=== PATIENT | female | born 1995 | race Caucasian/White ===

== ENCOUNTER 2016-06-03 17:31 | Emergency (ER) | payer OTHER ==
--- NOTE | 2016-06-03 18:00 | ER Document Report ---
ED Medical Screen (RME) - General Stated Complaint: BACK PAIN Notes: 21 yo female c/o low back pain since this morning. no trauma. no fever. no urinary symptoms. no radiculopathy no paresthesia no bowel/bladder change. TRAVEL OUTSIDE OF THE [place] IN LAST 30 DAYS: No - Related Data Allergies/Adverse Reactions: No Known Allergies Allergy (Unverified 10/08/14 08:04) Past Medical History Pulmonary Medical History: Reports: Hx Bronchitis Psychiatric Medical History: Reports: Hx Attention Deficit Hyperactivity Disorder - Immunizations Immunizations up to date: Yes Hx Diphtheria, Pertussis, Tetanus Vaccination: Yes - 08/2014 Physical Exam - Vital signs Vitals: Temp Pulse Resp BP Pulse Ox 98.8 F 90 16 105/68 98 06/03/16 17:36 06/03/16 17:36 06/03/16 17:36 06/03/16 17:36 06/03/16 17:36 Course - Vital Signs Vital signs: Temp Pulse Resp BP Pulse Ox 98.8 F 90 16 105/68 98 06/03/16 17:36 06/03/16 17:36 06/03/16 17:36 06/03/16 17:36 06/03/16 17:36
[2016-06-03 20:28] LABS: APPEARANCE,URINE CLOUDY; BILIRUBIN,URINE NEGATIVE (NEGATIVE); GLUCOSE, URINE NEGATIVE (NEGATIVE); KETONES,URINE NEGATIVE (NEGATIVE); LEUKOCYTE ESTERASE,URINE LARGE (NEGATIVE); NITRITE,URINE NEGATIVE (NEGATIVE); PROTEIN,URINE NEGATIVE (NEGATIVE); URINE SPECIFIC GRAVITY 1.028; UROBILINOGEN,URINE NEGATIVE mg/dL (<2.0)
[2016-06-03] MEDS ORDERED: CEPHALEXIN 500 MG CAPSULE PO ONE (20:48)
[2016-06-03] MEDS ORDERED: HYDROCODONE/ACETAMINOPHEN 5-325 MG TABLET PO ONE (20:48)
--- NOTE | 2016-06-03 20:51 | ER Document Report ---
HPI - HPI Patient complains to provider of: flank pain Pain Level: 5 Context: Patient is a 21-year-old female that comes emergency department for chief complaint of pain in her mid to lower back, worse on the right but starting also to become more tender on the left. She denies any abdominal pain, dysuria , nausea or vomiting, fever or chills. She denies any injury to the area. Patient denies any daily medications. LMP at the beginning of the month. - REPRODUCTIVE LMP: [id number] Reproductive: DENIES: : - DERM Skin Color: Normal Past Medical History - General Information source: Patient - Social History Smoking Status: Current Every Day Smoker Chew tobacco use (# tins/day): No Frequency of alcohol use: Occasional Drug Abuse: None Lives with: Spouse/Significant other Family History: Arthritis, CAD, Hyperlipidemia, Hypertension Patient has suicidal ideation: No Patient has homicidal ideation: No Pulmonary Medical History: Reports: Hx Bronchitis Renal/ Medical History: Denies: Hx Peritoneal Dialysis Psychiatric Medical History: Reports: Hx Attention Deficit Hyperactivity Disorder Surgical Hx: Negative - Immunizations Immunizations up to date: Yes Hx Diphtheria, Pertussis, Tetanus Vaccination: Yes - 08/2014 [facility] Provider Document - CONSTITUTIONAL General Appearance: WD/WN, No Apparent Distress - INFECTION CONTROL TRAVEL OUTSIDE OF THE [place] IN LAST 30 DAYS: No - HEENT HEENT: Atraumatic, Normocephalic - NECK Neck: Normal Inspection - RESPIRATORY Respiratory: Breath Sounds Normal, No Respiratory Distress O2 Sat by Pulse Oximetry: 99 - CARDIOVASCULAR Cardiovascular: Regular Rate, Regular Rhythm - GI/ABDOMEN Gastrointestinal: Abdomen Soft, Abdomen Non-Tender - BACK Notes: There is mild tenderness over the mid to lower lumbar areas of the right side of the back, there is some paraspinal muscle tenderness in this area as well, normal midline exam, no saddle anesthesia, normal upper and lower extremity range of motion and strength, normal distal neurovascular exam. - MUSCULOSKELETAL/EXTREMETIES Musculoskeletal/Extremeties: MAEW, FROM, Non-Tender - NEURO Level of Consciousness: Awake, Alert, Appropriate - DERM Integumentary: Warm, Dry, No Rash Course - Re-evaluation Re-evalutation: Back exam is suggestive of a muscular source of patient's discomfort, patient is well-appearing, patient is in no distress. Urinalysis shows negative hCG, large leukocyte esterase with white blood cells, there is also a fairly large amount of squamous epithelials. This was discussed with patient, patient will be started on short-term antibiotic, muscle relaxer, discussed follow-up and return precautions. Patient states understanding and agreement. - Vital Signs Vital signs: Temp Pulse Resp BP Pulse Ox 98.3 F 82 15 110/68 99 06/03/16 19:57 06/03/16 19:57 06/03/16 19:57 06/03/16 19:57 06/03/16 19:57 - Laboratory Laboratory results interpreted by me: 06/03/16 20:00 Ur Leukocyte Esterase LARGE H Discharge - Discharge Clinical Impression: Flank pain Condition: Stable Disposition: HOME, SELF-CARE Additional Instructions: Urinalysis indicates infection, test is negative. Examination also suggests a muscular nature of your pain, take both the Keflex antibiotic and the Flexeril muscle relaxer, apply heat to the area, avoid lifting until symptoms resolve if possible. Follow-up with primary care. Return to emergency department for any concerning or worsening symptoms including fever, vomiting, etc. Prescriptions: Cephalexin Monohydrate [Keflex 500 mg Capsule] 500 mg PO BID #10 capsule Cyclobenzaprine HCl [Flexeril 5 mg Tablet] 5 mg PO TID #15 tablet
[2016-06-04 00:11] VITALS: BP 112/69
== END 2016-06-03 20:55 | disposition home or self-care (01) ==
LOC: ER 17:31
DX: R10.9 Unspecified abdominal pain (principal); M54.5 Low back pain; F17.200 Nicotine dependence, unspecified, uncomplicated
CPT/HCPCS: 81001; 81025; 99284

== ENCOUNTER 2016-09-29 00:12 | Emergency (ER) | payer SELFPAY ==
[2016-09-29 01:07] VITALS: BP 133/86
[2016-09-29] MEDS ORDERED: LIDOCAINE 1% INJ-PF (10 MG/ML) 30 ML SDV INJ ONE (03:33)
--- NOTE | 2016-09-29 03:35 | ER Document Report ---
ED General - General Chief Complaint: Cough, abscess Stated Complaint: COUGH Time Seen by Provider: 09/29/16 03:18 Notes: Patient is a 21-year-old female presents with complaint of coughing. She has been coughing for over a week. She does not smoke. No sick contacts that she is aware of. Some congestion. No fevers. Patient says she is also been vomiting. She vomits sometimes when she coughs and sometimes when she eats.Abdominal pain with it. She is wonders if she could be . Her menstrual periods have been regular. Last period was about a month ago. Complains of an abscess in the right axilla. She has never had them in this location before. TRAVEL OUTSIDE OF THE [place] IN LAST 30 DAYS: No - Related Data Allergies/Adverse Reactions: No Known Allergies Allergy (Verified 06/03/16 17:58) Past Medical History - Social History Smoking Status: Never Smoker Frequency of alcohol use: None Drug Abuse: None Family History: Arthritis, CAD, Hyperlipidemia, Hypertension Pulmonary Medical History: Reports: Hx Bronchitis Renal/ Medical History: Denies: Hx Peritoneal Dialysis Psychiatric Medical History: Reports: Hx Attention Deficit Hyperactivity Disorder - Immunizations Immunizations up to date: Yes Hx Diphtheria, Pertussis, Tetanus Vaccination: Yes - 08/2014 Review of Systems - Review of Systems Notes: My Normal Review Basic REVIEW OF SYSTEMS: CONSTITUTIONAL : Denies fever, chills, or sweats. Denies recent illness. EENT: some sinus congestion. CARDIOVASCULAR: Denies chest pain. RESPIRATORY: cough GASTROINTESTINAL: Denies abdominal pain. vomiting. GENITOURINARY: Denies difficulty urinating, painful urination, burning, frequency, or blood in urine. FEMALE GENITOURINARY: Denies vaginal bleeding, abnormal or irregular periods. LMP: MUSCULOSKELETAL: Denies neck or back pain or joint pain or swelling. SKIN: Right axilla NEUROLOGICAL: Denies altered mental status or loss of consciousness. Denies headache. Denies weakness or paralysis or loss of use of either side. Denies problems with gait or speech. Denies sensory or motor loss. ALL OTHER SYSTEMS REVIEWED AND NEGATIVE. Physical Exam - Vital signs Vitals: Temp Pulse Resp BP Pulse Ox 98.5 F 117 H 16 133/86 H 99 09/29/16 01:01 09/29/16 01:01 09/29/16 01:01 09/29/16 01:01 09/29/16 01:01 - Notes Notes: General Appearance: Well nourished, alert, cooperative, no acute distress, no obvious discomfort. Dry cough during exam. Vitals: reviewed, See vital signs table. Head: no swelling or tenderness to the head Eyes: PERRL, EOMI, Conjuctiva clear Mouth: No decreasd moisture Throat: No tonsillar inflammation, No airway obstruction, No lymphadenopathy Neck: Supple, no neck tenderness, No thyromegaly Lungs: No wheezing, No rales, No rhonci, No accessory muscle use, good air exchange bilaterally. Heart: Normal rate, Regular rythm, No murmur, no rub Abdomen: Normal BS, soft, No rigidity, No abdominal tenderness, No guarding, no rebound, no abdominal masses, Extremities: strength 5/5 in all extremities, good pulses in all extremities, no swelling or tenderness in the extremities, no edema. Skin: warm, dry, appropriate color, no rash Neuro: speech clear, oriented x 3, normal affect, responds appropriately to questions. Course - Vital Signs Vital signs: Temp Pulse Resp BP Pulse Ox 98.5 F 117 H 16 133/86 H 99 09/29/16 01:01 09/29/16 01:01 09/29/16 01:01 09/29/16 01:01 09/29/16 01:01 - Laboratory Result Diagrams: 09/29/16 03:20 09/29/16 03:20 Laboratory results interpreted by me: 09/29/16 03:20 WBC 12.6 H MCV 79 L MCH 25.6 L Absolute Neutrophils 8.4 H - Transfer of Care Notes: 09/29/16 05:16 The abscess was incised and drained. She will be placed on clindamycin. She will be placed on prednisone for her cough. She has what appears to be a bronchitis. Her nausea is improved with Zofran. She has no abdominal pain palpation of her abdomen. She is not . She has had no dysuria. No vaginal symptoms. I feel the patient safe to be discharged home. I encouraged her to return to ER if she has worsening of her symptoms, fevers, or feels unwell. Patient agrees with plan will be discharged home. Dictation of this chart was performed using voice recognition software; therefore, there may be some unintended grammatical errors. Procedures - Incision and Drainage right axila Type: Simple Anesthetic type: 1% Lidocaine Blade size: 11 I&D procedure: Betadine prep applied Incision Method: Incision made by scalpel Amount/type of drainage: 3mls of purulent drainage Discharge - Discharge Clinical Impression: Cough, Axillary abscess Vomiting Qualifiers: Vomiting type: unspecified Vomiting Intractability: unspecified Nausea presence : with nausea Qualified Code(s): R11.2 - Nausea with vomiting, unspecified Condition: Good Additional Instructions: BRONCHITIS: You have acute bronchitis. This disease is an infection or inflammation of the air passageways in your lungs. Symptoms usually include cough, low grade fever, shortness of breath, and wheezing. The cough usually persists for a couple of weeks. Most cases of bronchitis get better without antibiotics. We prescribe antibiotics when we believe bacteria are damaging your airways, or if there's high risk the bronchitis will worsen into pneumonia. Increase your fluid intake. A cool mist humidifier may make your lungs more comfortable. An expectorant (cough medicine that loosens phlegm) can help. If you smoke, STOP!!! Recovery from bronchitis can be somewhat slow, but you should see improvement within a day or two. Repeated episodes of bronchitis may result in lung damage -- for example, chronic bronchitis, recurrent pneumonias, or emphysema. Call the doctor if you develop increasing fever, shortness of breath, chest pain, bloody sputum, or otherwise worsen. If you have not improved at all after several days, contact the physician. STEROID MEDICATION: You have been given an injection of or oral medicine of the cortisone/ steroid class. This medication is used to control inflammation or allergy. Ibrahima t is usually only given for a short period of time, until the acute process subsides. There are usually no side effects from short-term use of cortisone-like medications. Some persons feel an increased sense of well-being and are not sleepy at bedtime. Long-term use of cortisone medications is best avoided, unless required for a severe condition. If your condition does not remit, or relapses after the course of corticosteroid medication, you should consult your physician. FOLLOW-UP CARE: If you have been referred to a physician for follow-up care, call the physician s office for an appointment as you were instructed or within the next two days. If you experience worsening or a significant change in your symptoms, notify the physician immediately or return to the Emergency Department at any time for re-evaluation. ABSCESS: You have an abscess (boil). This a pus-forming infection, usually due to staph. Some boils may be left to drain on their own, but most require lancing. From the time the tender lump first appears, it may be three or four days before the abscess is ready to rachel. Local heat and rest help at this stage of treatment. An antibiotic may prevent spread of the infection. Once the abscess is opened, packing may be placed into it. This is done so pus is not sealed inside by premature closure of the cavity. The packing will be removed at your follow-up visit or you may be advised to remove it yourself at home. Sometimes this packing must be replaced a few times during healing. The wound will heal with surprisingly little scar. Depending on the size and location of an abscess, healing can take one to four weeks. You may shower and wash the area around the incision site two or three times a day. Antibiotics may be prescribed, but are usually not necessary after an abscess has been drained. If you develop fever, chills, worsening pain, or increasing swelling in the area, call the doctor or return immediately. POST INCISION AND DRAINAGE: You have had an incision made to allow drainage of an abscess. The incision must remain open so that pus and debris can drain from the wound. If the abscess cavity is large, packing is placed. This keeps the tissues from collapsing and trapping pus inside, while the body shrinks the cavity. The packing may need to be replaced every day or two. The physician will instruct you on the packing. Keep a bulky dressing over the area. Replace it if it becomes saturated with blood or pus. Do not disturb the packing (if present). You may shower and cleanse the area with gentle soap and warm water two or three times a day. Local warmth may be soothing, and may promote faster healing. Return if you develop high fever or chills, or if you note spreading redness, increasing swelling, or increasing tenderness. ORAL NARCOTIC MEDICATION: You have been given a prescription for pain control. This medication is a narcotic. It's best taken with food, as nausea can result if taken on an empty stomach. Don't operate machinery or drive within six hours of taking this medication. Do not combine this medicine with alcohol, or with any medication which can cause sedation (such as cold tablets or sleeping pills) unless you get permission from the physician. Narcotics tend to cause constipation. If possible, drink plenty of fluids and eat a diet high in fiber and fruits. FOLLOW-UP CARE: Most simple abscesses will not require a follow up visit. If you had packing placed in the abscess, remove it as instructed by the physician. If you have been referred to a physician for follow-up care, call the physicians office for an appointment as you were instructed or within the next two days. If you experience worsening or a significant change in your symptoms, return to the Emergency Department at any time for re-evaluation. Please return to the ER if you have difficulty breathing, fevers, increased swelling in your armpit, or worsening recurrent vomiting. Follow up with a doctor in 3 days for reevaluation Prescriptions: Clindamycin HCl 300 mg PO ASDIR #56 capsule Ondansetron [Zofran Odt 4 mg Tablet] 1 tab PO Q4H PRN #15 tab.rapdis PRN Reason: For Nausea/Vomiting Prednisone [Deltasone 20 mg Tablet] 3 tab PO DAILY 4 Days
[2016-09-29 03:41] LABS: ABSOLUTE BASOPHILS # (AUTO) 0.1 10^3/uL (0.0-0.2); ABSOLUTE EOSINOPHILS # (AUTO) 0.1 10^3/uL (0.0-0.6); ABSOLUTE LYMPHOCYTES (AUTO) 2.7 10^3/uL (0.5-4.7); ABSOLUTE MONOCYTES (AUTO) 1.3 10^3/uL (0.1-1.4); ABSOLUTE NEUT (AUTO) 8.4 10^3/uL (1.7-8.2); BASOPHILS % (AUTO) 0.4 % (0-2); HEMATOCRIT 37.5 % (36.0-47.0); HEMOGLOBIN 12.1 g/dL (12.0-15.5); HGB HCT DIFFERENCE -1.2; LYMPHOCYTES % (AUTO) 21.6 % (13-45); MEAN CORPUSCULAR HEMOGLOBIN 25.6 pg (27.0-33.4); MEAN CORPUSCULAR HGB CONC 32.3 g/dL (32.0-36.0); MEAN CORPUSCULAR VOLUME 79 fl (80-97); MONOCYTES % (AUTO) 10.3 % (3-13); RED BLOOD COUNT 4.73 10^6/uL (3.72-5.28); RED CELL DISTRIBUTION WIDTH 13.6 % (11.5-14.0); SEGMENTED NEUTROPHILS % (AUTO) 66.7 % (42-78); WHITE BLOOD COUNT 12.6 10^3/uL (4.0-10.5)
[2016-09-29 03:55] LABS: ALANINE AMINOTRANSFERASE 31 U/L (9-52); ALBUMIN 4.5 g/dL (3.5-5.0); ALKALINE PHOSPHATASE 91 U/L (38-126); ANION GAP 15 (5-19); ASPARTATE AMINO TRANSFERASE 23 U/L (14-36); BILIRUBIN,DIRECT 0.3 mg/dL (0.0-0.4); BILIRUBIN,TOTAL 0.5 mg/dL (0.2-1.3); BLOOD UREA NITROGEN 8 mg/dL (7-20); CALCIUM 9.6 mg/dL (8.4-10.2); CARBON DIOXIDE 23 mmol/L (22-30); CHLORIDE 104 mmol/L (98-107); CREATININE RESULT 0.76 mg/dL (0.52-1.25); GLUCOSE 89 mg/dL (75-110); LIPASE 60.4 U/L (23-300); POTASSIUM 4.3 mmol/L (3.6-5.0); SODIUM 141.6 mmol/L (137-145)
--- NOTE | 2016-09-29 04:44 | RADIOLOGY REPORT (SQ) ---
EXAM DESCRIPTION: CHEST PA/LAT COMPLETED DATE/TIME: 09/29/2016 4:35 am REASON FOR STUDY: cough COMPARISON: 8.5.16 EXAM PARAMETERS: NUMBER OF VIEWS: two views TECHNIQUE: Digital Frontal and Lateral radiographic views of the chest acquired. RADIATION DOSE: NA LIMITATIONS: none FINDINGS: LUNGS AND PLEURA: No opacities, masses or pneumothorax. No pleural effusion. MEDIASTINUM AND HILAR STRUCTURES: No masses or contour abnormalities. HEART AND VASCULAR STRUCTURES: Heart normal size. No evidence for failure. BONES: No acute findings. HARDWARE: None in the chest. OTHER: No other significant finding. IMPRESSION: NO SIGNIFICANT RADIOGRAPHIC FINDING IN THE CHEST. TECHNICAL DOCUMENTATION: JOB ID: [id number] [employer]- All Rights Reserved
[2016-09-29] MEDS ORDERED: ONDANSETRON 4 MG TAB.RAPDIS PO ONE (04:50)
[2016-09-29] MEDS ORDERED: PREDNISONE 20 MG TABLET PO ONE (05:07)
[2016-09-29] MEDS ORDERED: HYDROCODONE/ACETAMINOPHEN 5-325 MG 6 TAB/DSPK PO PRN (05:07)
[2016-09-29] MEDS ORDERED: CLINDAMYCIN HCL 150 MG CAPSULE PO ONE (05:07)
== END 2016-09-29 06:11 | disposition home or self-care (01) ==
LOC: ER 00:12
PROC: 0H9BXZZ Drainage of Right Upper Arm Skin, External Approach (ICD-10-PCS; principal; 2016-09-29)
DX: L02.411 Cutaneous abscess of right axilla (principal); R05 Cough; R11.2 Nausea with vomiting, unspecified
CPT/HCPCS: 99283; 36415; 83690; 84703; 85025; 80053; 71020; 10060; S0119; J7512

== ENCOUNTER 2016-11-24 | Emergency (ER) | payer SELFPAY ==
[2016-11-24 00:12] VITALS: BP 127/74
[2016-11-24] MEDS ORDERED: IBUPROFEN 600 MG TABLET PO ONE (00:43)
[2016-11-24] MEDS ORDERED: SULFAMETHOXAZOLE/TRIMETHOPRIM 800-160 MG TABLET PO ONE (00:43)
--- NOTE | 2016-11-24 00:44 | ER Document Report ---
ED General - General Chief Complaint: Abscess Stated Complaint: POSSIBLE ABSCESS Time Seen by Provider: 11/24/16 00:23 Notes: Patient is a 21-year-old female who presents with 1 week of an abscess to her left buttock. Describes it as a severe, constant, throbbing pain. Touching area worsens the pain. Nothing improves the pain. She has had multiple abscesses similar to this in the past. She has not seen her primary care doctor regarding today's concerns. She denies any fever or constitutional symptoms. TRAVEL OUTSIDE OF THE [place] IN LAST 30 DAYS: No - Related Data Allergies/Adverse Reactions: No Known Allergies Allergy (Verified 06/03/16 17:58) Past Medical History - General Information source: Patient - Social History Smoking Status: Never Smoker Frequency of alcohol use: None Drug Abuse: None Family History: Arthritis, CAD, Hyperlipidemia, Hypertension Patient has suicidal ideation: No Patient has homicidal ideation: No Pulmonary Medical History: Reports: Hx Bronchitis Renal/ Medical History: Denies: Hx Peritoneal Dialysis Psychiatric Medical History: Reports: Hx Attention Deficit Hyperactivity Disorder - Immunizations Immunizations up to date: Yes Hx Diphtheria, Pertussis, Tetanus Vaccination: Yes - 08/2014 Review of Systems - Review of Systems Notes: Constitutional: Negative for fever. HENT: Negative for sore throat. Eyes: Negative for visual changes. Cardiovascular: Negative for chest pain. Respiratory: Negative for shortness of breath. Gastrointestinal: Negative for abdominal pain, vomiting or diarrhea. Genitourinary: Negative for dysuria. Musculoskeletal: Negative for back pain. Skin: Positive for right buttock abscess Neurological: Negative for headaches, weakness or numbness. 10 point ROS negative except as marked above and in HPI. Physical Exam - Vital signs Vitals: Temp Pulse Resp BP Pulse Ox 98.5 F 90 18 127/74 H 98 11/24/16 00:10 11/24/16 00:10 11/24/16 00:10 11/24/16 00:10 11/24/16 00:10 Notes: PHYSICAL EXAMINATION: GENERAL: Well-appearing, well-nourished and in no acute distress. HEAD: Atraumatic, normocephalic. EYES: sclera anicteric, conjunctiva are normal. ENT: Moist mucous membranes. NECK: Normal range of motion LUNGS: Normal work of breathing HEART: 2+ radial pulses bilaterally EXTREMITIES: no pitting or edema. No cyanosis. NEUROLOGICAL: No focal neurological deficits. Moves all extremities spontaneously and on command. PSYCH: Normal mood, normal affect. SKIN: Warm, Dry, normal turgor, left buttock 0.5 x 0.5 abscess Course - Re-evaluation Re-evalutation: 11/24/16 00:42 Patient presents with a right buttock abscess which was incised and drained without difficulty the bedside. Approximately 3 cc of purulent material was expressed. There is a mild surrounding area of cellulitis. She was started on TMP-SMX 2 tabs twice daily for 5 days. Ibuprofen for pain. At this time will discharge with return precautions and follow-up recommendations. Verbal discharge instructions given a the bedside and opportunity for questions given. Medication warnings reviewed. Patient is in agreement with this plan and has verbalized understanding of return precautions and the need for primary care follow-up in the next 24-72 hours. - Vital Signs Vital signs: Temp Pulse Resp BP Pulse Ox 98.5 F 90 18 127/74 H 98 11/24/16 00:10 11/24/16 00:10 11/24/16 00:10 11/24/16 00:10 11/24/16 00:10 Procedures - Incision and Drainage Right Buttock Type: Simple Anesthetic type: 1% Lidocaine mL's of anesthetic: 4 Blade size: 11 I&D procedure: Betadine prep applied Incision Method: Incision made by scalpel Amount/type of drainage: 3 cc purulent material Discharge - Discharge Clinical Impression: Abscess of right buttock Condition: Good Disposition: HOME, SELF-CARE Additional Instructions: You were seen for an abscess that required drainage. Please clean this area with soap and water twice daily and apply a topical antibiotic. Dress the area after each cleaning. Please return if you develop fever, vomiting, the pain at the site worsens, you notice spreading redness from the area, or you have any other symptoms that are concerning to you. Prescriptions: Sulfamethoxazole/Trimethoprim [Bactrim Ds Tablet] 2 tab PO BID #20 tablet
== END 2016-11-24 01:00 | disposition home or self-care (01) ==
LOC: ER
PROC: 0H98XZZ Drainage of Buttock Skin, External Approach (ICD-10-PCS; principal; 2016-11-24)
DX: L02.31 Cutaneous abscess of buttock (principal)
CPT/HCPCS: 99283

== ENCOUNTER 2016-12-13 20:48 | Emergency (ER) | payer SELFPAY ==
[2016-12-13 21:08] VITALS: BP 132/77
--- NOTE | 2016-12-13 21:16 | ER Document Report ---
ED Skin Rash/Insect Bite/Abscs - General Chief Complaint: Leg Swelling Stated Complaint: BUG BITE Time Seen by Provider: 12/13/16 21:05 Mode of Arrival: Ambulatory Information source: Patient TRAVEL OUTSIDE OF THE [place] IN LAST 30 DAYS: No - HPI Patient complains to provider of: Tender/swollen area Onset: Other - A few days ago Onset/Duration: Gradual Quality of pain: Achy Severity: Moderate Pain Level: 3 Skin Character: Abscess Skin Temperature: Warm Quality of rash: Painful Notes: Patient arrives complaining of an abscess to the right inner leg. She states been there for the last few days but got worse today. She now has some slight redness streaking up towards the knee. No fevers. No nausea, vomiting, diarrhea. 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 She has had abscesses in the past. She denies any fever. She denies any nausea, vomiting, diarrhea. She denies any other complaints at this time. - Related Data Allergies/Adverse Reactions: No Known Allergies Allergy (Verified 06/03/16 17:58) Past Medical History - Social History Smoking Status: Unknown if Ever Smoked Family History: Arthritis, CAD, Hyperlipidemia, Hypertension Patient has suicidal ideation: No Patient has homicidal ideation: No Pulmonary Medical History: Reports: Hx Bronchitis Renal/ Medical History: Denies: Hx Peritoneal Dialysis Psychiatric Medical History: Reports: Hx Attention Deficit Hyperactivity Disorder - Immunizations Immunizations up to date: Yes Hx Diphtheria, Pertussis, Tetanus Vaccination: Yes - 08/2014 Review of Systems - Review of Systems -: Yes All other systems reviewed and negative Physical Exam - Vital signs Vitals: Temp Pulse Resp BP Pulse Ox 98.2 F 100 16 132/77 H 99 12/13/16 21:05 12/13/16 21:05 12/13/16 21:05 12/13/16 21:05 12/13/16 21:05 - Notes Notes: GENERAL: alert, cooperative, nontoxic, no distress. HEAD: normocephalic, atraumatic EYES: conjunctiva pink without discharge, no external redness or swelling. EARS: no external swelling, no external redness NOSE: atraumatic, no external swelling MOUTH/THROAT: mucous membranes moist and pink NECK: soft, supple, full range of motion, no meningismus. CHEST: no distress, lungs clear and equal throughout. No wheezing, rales, rhonchi. CARDIAC: regular rate and rhythm, no murmur, normal capillary refill, normal pulses. BACK: full range of motion, no CVA tenderness. EXTREMITIES: full range of motion of all extremities. No redness, no swelling. NEURO: alert and oriented 3, no focal deficits, full range of motion of all extremities. PYSCH: appropriate mood, affect. Patient is cooperative. SKIN: pink, warm, dry, no rash. Patient is noted to have a small abscess that is open and draining to the right inner calf. There is some mild surrounding erythema around this. There is no fluctuance noted. She has 1 small area of red streaking up towards the knee. No streaking to the thigh. Course - Re-evaluation Re-evalutation: 12/13/16 21:13 The patient is nontoxic appearing with stable vitals. She has an abscess to the right inner calf that is already open and draining. There is no further drainable collection noted. She has some mild surrounding erythema and a small area of red streaking up towards the knee. She is afebrile. She denies a history of diabetes. End of her exam is unremarkable. She has a history of abscess in the past. This point the abscess does not appear to need further opening as there is no further fluctuance noted. Patient will be placed on Bactrim and Keflex, Voltaren, tramadol, apply warm compresses to the sore area. Follow-up if not improving in the next 2 days, sooner for increased pain, fever, increased redness or any further concerns. 12/13/16 21:15 The patient is noted to have elevated blood pressure during today's emergency department visit. The patient was informed of this finding. The patient was instructed that this may be related to pre-hypertension and requires further evaluation with a primary care provider. The patient has no hypertensive symptoms at this time. - Vital Signs Vital signs: Temp Pulse Resp BP Pulse Ox 98.2 F 100 16 132/77 H 99 12/13/16 21:05 12/13/16 21:05 12/13/16 21:05 12/13/16 21:05 12/13/16 21:05 Discharge - Discharge Clinical Impression: Cellulitis and abscess of right leg Condition: Stable Disposition: HOME, SELF-CARE Instructions: Abscess ([facility]), Cephalexin ([facility]), Trimethoprim-Sulfa ([facility]) Additional Instructions: Take medications as prescribed. Apply warm compresses to sore area. Follow-up if not better in 2 days, sooner for increased pain, fever, increased redness, or any further concerns. Your blood pressure was elevated during today's visit. Have this rechecked with your doctor. Prescriptions: Cephalexin Monohydrate [Keflex 500 mg Capsule] 500 mg PO QID #40 capsule Naproxen 500 mg PO BID #20 tablet Sulfamethoxazole/Trimethoprim [Bactrim Ds Tablet] 1 each PO BID #20 tablet Tramadol HCl [Ultram] 50 mg PO TID PRN #10 tablet PRN Reason: Forms: Elevated Blood Pressure Referrals: [facility] [Provider Group] - Follow up as needed
[2016-12-13] MEDS ORDERED: SULFAMETHOXAZOLE/TRIMETHOPRIM 800-160 MG TABLET ONE (21:22)
[2016-12-13] MEDS ORDERED: CEPHALEXIN 500 MG CAPSULE ONE (21:23)
== END 2016-12-13 21:25 | disposition home or self-care (01) ==
LOC: ER 20:48
DX: L02.415 Cutaneous abscess of right lower limb (principal)
CPT/HCPCS: 99282

== ENCOUNTER 2017-01-10 16:05 | Emergency (ER) | payer SELFPAY ==
--- NOTE | 2017-01-10 17:16 | ER Document Report ---
ED General - General Chief Complaint: Lower Abdominal Pain Stated Complaint: lower abdominal pain RLQ Time Seen by Provider: 01/10/17 16:18 Mode of Arrival: Ambulatory Information source: Patient TRAVEL OUTSIDE OF THE [place] IN LAST 30 DAYS: No - HPI Notes: Patient is a 21-year-old female presents to the emergency department with report of menstrual bleeding started 2 days ago then yesterday she noted right lower quadrant pain which is worsened since onset. The patient denies any fever or chills. The patient reports no constipation or diarrhea. She states her menstrual bleeding is typical for her. She denies any cough or congestion or back pain. No history of ovarian cysts or kidney stones. Patient states that she has some discomfort when she removes and inserts her tampon. The patient states she has not been sexually active for perhaps 2-3 months. - Related Data Allergies/Adverse Reactions: No Known Allergies Allergy (Verified 06/03/16 17:58) Past Medical History - General Information source: Patient - Social History Smoking Status: Current Some Day Smoker Chew tobacco use (# tins/day): No Frequency of alcohol use: Rare Drug Abuse: None Lives with: Friend Family History: Arthritis, CAD, Hyperlipidemia, Hypertension Pulmonary Medical History: Reports: Hx Bronchitis Renal/ Medical History: Denies: Hx Peritoneal Dialysis Psychiatric Medical History: Reports: Hx Attention Deficit Hyperactivity Disorder Surgical Hx: Negative - Immunizations Immunizations up to date: Yes Hx Diphtheria, Pertussis, Tetanus Vaccination: Yes - 08/2014 Review of Systems - Review of Systems Notes: REVIEW OF SYSTEMS: CONSTITUTIONAL : Denies fever, chills, or sweats. Denies recent illness. EENT: Denies eye, ear, throat, or mouth pain or symptoms. Denies nasal or sinus congestion or discharge. Denies throat, tongue, or mouth swelling or difficulty swallowing. CARDIOVASCULAR: Denies chest pain. Denies palpitations or racing or irregular heart beat. Denies ankle edema. RESPIRATORY: Denies cough, cold, or chest congestion. Denies shortness of breath, difficulty breathing, or wheezing. GASTROINTESTINAL: Denies abdominal distention. Denies nausea, vomiting, or diarrhea. Denies blood in vomitus, stools, or per rectum. Denies black, tarry stools. Denies constipation. GENITOURINARY: Denies difficulty urinating, painful urination, burning, frequency, blood in urine, or discharge. FEMALE GENITOURINARY: Denies vaginal discharge or odor. MUSCULOSKELETAL: Denies back or neck pain or stiffness. Denies joint pain or swelling. SKIN: Denies rash, lesions or sores. HEMATOLOGIC : Denies easy bruising or bleeding. LYMPHATIC: Denies swollen, enlarged glands. NEUROLOGICAL: Denies confusion or altered mental status. Denies passing out or loss of consciousness. Denies dizziness or lightheadedness. Denies headache. Denies weakness or paralysis or loss of use of either side. Denies problems with gait or speech. Denies sensory loss, numbness, or tingling. Denies seizures. PSYCHIATRIC: Denies anxiety or stress. Denies depression, suicidal ideation, or homicidal ideation. ALL OTHER SYSTEMS REVIEWED AND NEGATIVE. Dictation was performed using [employer] voice recognition software Physical Exam - Vital signs Vitals: Temp Pulse Resp BP Pulse Ox 98.5 F 82 16 115/61 100 01/10/17 16:10 01/10/17 16:10 01/10/17 16:10 01/10/17 16:10 01/10/17 16:10 - Notes Notes: PHYSICAL EXAMINATION: GENERAL: Well-appearing, well-nourished and in no acute distress. HEAD: Atraumatic, normocephalic. EYES: Pupils equal round and reactive to light, extraocular movements intact, conjunctiva are normal. ENT: Nares patent, oropharynx clear without exudates. Moist mucous membranes. NECK: Normal range of motion, supple without lymphadenopathy LUNGS: Breath sounds clear to auscultation bilaterally and equal. No wheezes rales or rhonchi. HEART: Regular rate and rhythm without murmurs ABDOMEN: Soft nondistended abdomen. No guarding, no rebound. No masses appreciated. Patient's tender through the right lower quadrant region. Female : Normal external female genitalia. Patient has vaginal bleeding consistent with normal menstrual cycle. Patient has some mild cervical motion tenderness, but has significant pain right lower quadrant region above the right adnexa. No gross adnexal masses appreciated. Musculoskeletal: Normal range of motion, no pitting or edema. No cyanosis. No CVA tenderness noted. NEUROLOGICAL: Cranial nerves grossly intact. Normal speech, normal gait. Normal sensory, motor exams PSYCH: Normal mood, normal affect. SKIN: Warm, Dry, normal turgor, no rashes or lesions noted. Course - Re-evaluation Re-evalutation: 01/10/17 19:13 CT scan showed no evidence for appendicitis or tubo-ovarian abscess or ovarian torsion or ovarian cyst or diverticulitis. Specimen sent for gonorrhea and chlamydial testing. Urine culture sent. We will cover for PID as well as for UTI. Repeat abdominal exam showed no significant tenderness besides mild suprapubic. Patient warned to return in case of worsening pain or fever, as early appendicitis still cannot be completely excluded. 01/10/17 19:14 - Vital Signs Vital signs: Temp Pulse Resp BP Pulse Ox 98.5 F 82 16 115/61 100 01/10/17 16:10 01/10/17 16:10 01/10/17 16:10 01/10/17 16:10 01/10/17 16:10 - Laboratory Result Diagrams: 01/10/17 17:53 01/10/17 17:53 Laboratory results interpreted by me: 01/10/17 01/10/17 17:53 17:53 Hgb 11.8 L Hct 35.6 L MCV 79 L MCH 26.3 L RDW 17.1 H Chloride 108 H Discharge - Discharge Clinical Impression: PID (acute pelvic inflammatory disease), Urinary tract bacterial infections Abdominal pain Qualifiers: Abdominal location: left lower quadrant Qualified Code(s): R10.32 - Left lower quadrant pain Clinical Impression: (Ruled Out): Constipation, Chest pain, Cocaine abuse Condition: Stable Disposition: HOME, SELF-CARE Instructions: Pelvic Inflammatory Disease ([facility]), Urinary Tract Infection ([facility]) Additional Instructions: Return to the emergency department in case of severe pain, uncontrolled vomiting , fever. Prescriptions: Tramadol HCl [Ultram] 50 mg PO Q4HP PRN #20 tablet PRN Reason: Ondansetron [Zofran Odt 4 mg Tablet] 1 tab PO Q8HP PRN #10 tab.rapdis PRN Reason: For Nausea/Vomiting Ciprofloxacin HCl [Cipro 500 mg Tablet] 500 mg PO BID #14 tablet Doxycycline Hyclate 100 mg PO BID #20 capsule Forms: Return to Work Referrals: LOCAL,NO [Primary Care Provider] - Follow up as needed AHSAN GONZALEZ MD [ACTIVE STAFF] - Follow up in 3-5 days
[2017-01-10 17:49] LABS: APPEARANCE,URINE TURBID; BILIRUBIN,URINE NEGATIVE (NEGATIVE); GLUCOSE, URINE NEGATIVE (NEGATIVE); KETONES,URINE NEGATIVE (NEGATIVE); LEUKOCYTE ESTERASE,URINE NEGATIVE (NEGATIVE); NITRITE,URINE NEGATIVE (NEGATIVE); PROTEIN,URINE NEGATIVE (NEGATIVE); URINE SPECIFIC GRAVITY 1.023; UROBILINOGEN,URINE NEGATIVE mg/dL (<2.0)
[2017-01-10 18:10] LABS: ABSOLUTE EOSINOPHILS # (AUTO) 0.2 10^3/uL (0.0-0.6); ABSOLUTE LYMPHOCYTES (AUTO) 1.7 10^3/uL (0.5-4.7); ABSOLUTE MONOCYTES (AUTO) 0.6 10^3/uL (0.1-1.4); ABSOLUTE NEUT (AUTO) 3.9 10^3/uL (1.7-8.2); BASOPHILS % (AUTO) 0.4 % (0-2); EOSINOPHILS % (AUTO) 2.7 % (0-6); HEMATOCRIT 35.6 % (36.0-47.0); HEMOGLOBIN 11.8 g/dL (12.0-15.5); HGB HCT DIFFERENCE -0.2; LYMPHOCYTES % (AUTO) 26.3 % (13-45); MEAN CORPUSCULAR HEMOGLOBIN 26.3 pg (27.0-33.4); MEAN CORPUSCULAR HGB CONC 33.1 g/dL (32.0-36.0); MEAN CORPUSCULAR VOLUME 79 fl (80-97); RED BLOOD COUNT 4.49 10^6/uL (3.72-5.28); RED CELL DISTRIBUTION WIDTH 17.1 % (11.5-14.0); SEGMENTED NEUTROPHILS % (AUTO) 60.6 % (42-78); WHITE BLOOD COUNT 6.4 10^3/uL (4.0-10.5)
[2017-01-10 18:26] LABS: ALANINE AMINOTRANSFERASE 26 U/L (9-52); ALKALINE PHOSPHATASE 81 U/L (38-126); ANION GAP 10 (5-19); ASPARTATE AMINO TRANSFERASE 30 U/L (14-36); BILIRUBIN,DIRECT 0.4 mg/dL (0.0-0.4); BILIRUBIN,TOTAL 0.7 mg/dL (0.2-1.3); BLOOD UREA NITROGEN 13 mg/dL (7-20); CALCIUM 9.6 mg/dL (8.4-10.2); CARBON DIOXIDE 23 mmol/L (22-30); CHLORIDE 108 mmol/L (98-107); CREATININE RESULT 0.81 mg/dL (0.52-1.25); GLUCOSE 91 mg/dL (75-110); LIPASE 72.6 U/L (23-300); POTASSIUM 4.2 mmol/L (3.6-5.0); SODIUM 140.8 mmol/L (137-145); TOTAL PROTEIN 6.4 g/dL (6.3-8.2)
--- NOTE | 2017-01-10 18:31 | RADIOLOGY REPORT (SQ) ---
EXAM DESCRIPTION: CT ABD/PELVIS WITH IV ONLY COMPLETED DATE/TIME: 01/10/2017 6:20 pm REASON FOR STUDY: RLQ pain COMPARISON: None. TECHNIQUE: CT scan of the abdomen and pelvis performed using helical scanning technique with dynamic intravenous contrast injection. No oral contrast. Images reviewed with lung, soft tissue, and bone windows. Reconstructed coronal and sagittal MPR images reviewed. Delayed images for evaluation of the urinary system also acquired. All images stored on PACS. All CT scanners at this facility use dose modulation, iterative reconstruction, and/or weight based d osing when appropriate to reduce radiation dose to as low as reasonably achievable (ALARA). [facility]: Dose Right [facility]: CareDose [facility]: Dose Right [facility]: Teradose 4D [facility]: WaveSyndicate CONTRAST TYPE AND DOSE: contrast/concentration: Isovue 370.00 mg/ml; Total Contrast Delivered: 80.1 ml; Total Saline Delivered: 53.0 ml RENAL FUNCTION: None required. The patient is less than 50 years old. RADIATION DOSE: Up-to-date CT equipment and radiation dose reduction techniques were employed. CTDIv ol: 5.8 - 6.6 mGy. DLP: 680 mGy-cm.. LIMITATIONS: None. FINDINGS: LOWER CHEST: No significant findings. No nodules or infiltrates. LIVER: Normal size. No masses. No dilated ducts. SPLEEN: Normal size. No focal lesions. PANCREAS: No masses. No significant calcifications. No adjacent inflammation or peripancreatic fluid collections. Pancreatic duct not dilated. GALLBLADDER: No identified stones by CT criteria. No inflammatory changes to suggest cholecystitis. ADRENAL GLANDS: No significant masses or asymmetry. RIGHT KIDNEY AND URETER: No solid masses. No significant calcifications. No hydronephrosis or hyd roureter. LEFT KIDNEY AND URETER: No solid masses. No significant calcifications. No hydronephrosis or hydr oureter. AORTA AND VESSELS: No aneurysm. No dissection. Renal arteries, SMA, celiac without stenosis. RETROPERITONEUM: No retroperitoneal adenopathy, hemorrhage or masses. BOWEL AND PERITONEAL CAVITY: No masses or inflammatory changes. No free fluid or peritoneal masses. APPENDIX: Normal. PELVIS: No mass. No free fluid. Normal bladder. ABDOMINAL WALL: No masses. No hernias. BONES: No significant or acute findings. OTHER: No other significant finding. IMPRESSION: NO SIGNIFICANT OR ACUTE FINDING IN THE ABDOMEN OR PELVIS ON CT SCAN WITH IV CONTRAST. TECHNICAL DOCUMENTATION: JOB ID: [id number] Quality ID # [id number]: Final reports with documentation of one or more dose reduction techniques (e.g., Au tomated exposure control, adjustment of the mA and/or kV according to patient size, use of iterative reconstruction technique) 2010 [employer]- All Rights Reserved
[2017-01-10] MEDS ORDERED: CEFTRIAXONE INJ 1000 MG VIAL IV ONE (18:47)
[2017-01-10] MEDS ORDERED: DOXYCYCLINE HYCLATE 100 MG TABLET PO ONE (18:48)
[2017-01-10 19:03] LABS: CHLAM PCR NOT DETECTED (NOT DETECT)
[2017-01-10] MEDS ORDERED: CIPROFLOXACIN HCL 500 MG TABLET PO ONE (19:06)
[2017-01-10] MEDS ORDERED: CEFTRIAXONE 1 GM/D5W RTU 1 GM/50 ML RTUPB IV ONE (19:43)
[2017-01-10 19:58] VITALS: BP 112/54
== END 2017-01-10 19:58 | disposition home or self-care (01) ==
LOC: ER 16:05
DX: N73.0 Acute parametritis and pelvic cellulitis (principal); N39.0 Urinary tract infection, site not specified; B96.89 Other specified bacterial agents as the cause of diseases classified elsewhere; R10.31 Right lower quadrant pain; F17.200 Nicotine dependence, unspecified, uncomplicated
CPT/HCPCS: 99284; 96374; 36415; 87086; 87210; 83690; 85025; 81025; 80053; 81001; 87491; 87591; 74177; J0696

== ENCOUNTER 2017-05-06 20:27 | Emergency (ER) | payer SELFPAY ==
[2017-05-06 20:37] VITALS: BP 114/79
--- NOTE | 2017-05-06 22:11 | ER Document Report ---
ED Skin Rash/Insect Bite/Abscs - General Chief Complaint: Abscess Stated Complaint: POSSIBLE ABSCESS Time Seen by Provider: 05/06/17 22:11 Notes: 22-year-old female patient to the emergency department by ambulance for evaluation of a possible pimple on her left knee. 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 Was having trouble bearing weight on her knee due to the pain. States that she has had several abscesses in the past. Thinks that she has an abscess again and wants it drained. Fever , chills, sweats. Says she has been picking at it and trying to get it to pop. States that her last tetanus was less than a year ago. TRAVEL OUTSIDE OF THE [place] IN LAST 30 DAYS: No - HPI Patient complains to provider of: Skin rash/lesion, Tender/swollen area Onset/Duration: Gradual Quality of pain: Sharp Severity: Moderate Pain Level: 3 Skin Character: Abscess, Lesion Skin Temperature: Warm Medication exposure: denies: Antibiotic - Related Data Allergies/Adverse Reactions: No Known Allergies Allergy (Verified 06/03/16 17:58) Past Medical History - General Information source: Patient - Social History Smoking Status: Never Smoker Cigarette use (# per day): No Frequency of alcohol use: None Drug Abuse: None Family History: Arthritis, CAD, Hyperlipidemia, Hypertension Patient has suicidal ideation: No Patient has homicidal ideation: No Pulmonary Medical History: Reports: Hx Bronchitis Renal/ Medical History: Denies: Hx Peritoneal Dialysis Psychiatric Medical History: Reports: Hx Attention Deficit Hyperactivity Disorder - Immunizations Immunizations up to date: Yes Hx Diphtheria, Pertussis, Tetanus Vaccination: Yes - 08/2014 Review of Systems - Review of Systems Constitutional: No symptoms reported Cardiovascular: No symptoms reported. denies: Chest pain, Palpitations Respiratory: No symptoms reported. denies: Short of breath, Wheezing Musculoskeletal: No symptoms reported. denies: Joint swelling, Muscle pain, Muscle stiffness Skin: See HPI, Change in color, Lesions, Other - Possible abscess on left knee Physical Exam - Vital signs Vitals: Temp Pulse Resp BP Pulse Ox 98.7 F 95 17 114/79 97 05/06/17 20:34 05/06/17 20:34 05/06/17 20:34 05/06/17 20:34 05/06/17 20:34 Interpretation: Normal - Respiratory Respiratory status: No respiratory distress Chest status: Nontender Breath sounds: Normal Chest palpation: Normal - Cardiovascular Rhythm: Regular Heart sounds: Normal auscultation Murmur: No - Extremities General upper extremity: Normal inspection, Nontender, Normal color, Normal ROM , Normal temperature General lower extremity: Normal inspection, Nontender, Tender - Mild tenderness to palpation at the area of redness on the left knee inferior and lateral to the patella, Normal color, Normal ROM, Normal temperature, Normal weight bearing. No: Yao's sign - Skin Skin Temperature: Warm Skin Moisture: Dry Skin Color: Other - There is a smaller pimple on the left knee. There is approximately 2 cm of surrounding erythema. There is no fluctuance. There is no drainage. Course - Re-evaluation Re-evalutation: 05/06/17 22:38 Bedside ultrasound used to evaluate the left knee skin. There is no obvious fluid collections noted. No signs of abscess. 05/06/17 22:38 She did advise there is no obvious abscess. Do not feel that this needs I&D at this time. Will place on antibiotics. Will sharron the area of redness. Patient given ibuprofen. Will DC with prescriptions. - Vital Signs Vital signs: Temp Pulse Resp BP Pulse Ox 98.7 F 95 17 114/79 97 05/06/17 20:34 05/06/17 20:34 05/06/17 20:34 05/06/17 20:34 05/06/17 20:34 Discharge - Discharge Clinical Impression: Cellulitis of left knee Condition: Good Disposition: HOME, SELF-CARE Instructions: Trimethoprim-Sulfa ([facility]), Cephalexin ([facility]) Additional Instructions: Cellulitis You have an infection of your skin and underlying soft tissues called cellulitis. This is due to bacteria, which can enter through any break in the skin, or even through an irritated hair follicle. Untreated, cellulitis will usually worsen. Antibiotics are required. Usually, warm packs or warm soaks, and elevation of the infected area are recommended. You should start getting better within 24 to 36 hours. Most infections respond quickly to the right medication. Follow-up care is important, however, to check for abscess (boil) formation, unsuspected foreign body, or resistant infection. If you develop fever, chills, or if the area of infection is becoming rapidly more swollen or painful, call the doctor at once. Prescriptions: Cephalexin Monohydrate [Keflex 500 mg Capsule] 500 mg PO Q6H 7 Days #28 capsule Ibuprofen [Motrin 800 mg Tablet] 800 mg PO Q8H PRN #30 tab PRN Reason: Sulfamethoxazole/Trimethoprim [Bactrim Ds Tablet] 1 each PO BID 7 Days #14 tablet Forms: Return to Work
[2017-05-06] MEDS ORDERED: IBUPROFEN 800 MG TABLET PO ONE (22:31)
[2017-05-06] MEDS ORDERED: CEPHALEXIN 500 MG CAPSULE PO ONE (22:31)
[2017-05-06] MEDS ORDERED: SULFAMETHOXAZOLE/TRIMETHOPRIM 800-160 MG TABLET PO ONE (22:31)
== END 2017-05-06 23:04 | disposition home or self-care (01) ==
LOC: ER 20:27
DX: L03.116 Cellulitis of left lower limb (principal); L02.416 Cutaneous abscess of left lower limb
CPT/HCPCS: 99283

== ENCOUNTER 2017-11-02 16:05 | Emergency (ER) | payer SELFPAY ==
--- NOTE | 2017-11-02 16:48 | ER Document Report ---
ED Medical Screen (RME) - General Chief Complaint: Neck Swelling Stated Complaint: POSSIBLE ABSCESS, DIZZY Time Seen by Provider: 11/02/17 16:44 Notes: RAPID MEDICAL EVALUATION DISCLOSURE I have seen this patient as part of a Rapid Medical Evaluation and, if applicable, placed any initially appropriate orders. The patient will be seen and fully evaluated, including a full history and physical exam, by a provider ( in Main ED or Fast Track) when a room becomes available. 22-year-old female here with complaints of left neck swelling ongoing for the past few days. She has had a "lopez" in that area for the past year however several days ago started swelling and becoming painful. She tried taking a hot bath but "it will not come to ahead". Denies fevers chills. Has a history of abscesses but has never needed incision/drainage EXAM Small 1 cm fluctuant mass to the left neck NOTE Patient declines pain medicine TRAVEL OUTSIDE OF THE [place] IN LAST 30 DAYS: No - Related Data Allergies/Adverse Reactions: No Known Allergies Allergy (Verified 06/03/16 17:58) Past Medical History Pulmonary Medical History: Reports: Hx Bronchitis Renal/ Medical History: Denies: Hx Peritoneal Dialysis Psychiatric Medical History: Reports: Hx Attention Deficit Hyperactivity Disorder - Immunizations Immunizations up to date: Yes Hx Diphtheria, Pertussis, Tetanus Vaccination: Yes - 08/2014 Physical Exam - Vital signs Vitals: Temp Pulse Resp BP Pulse Ox 98.8 F 87 18 133/64 H 99 11/02/17 16:12 11/02/17 16:12 11/02/17 16:12 11/02/17 16:12 11/02/17 16:12 Course - Vital Signs Vital signs: Temp Pulse Resp BP Pulse Ox 98.8 F 87 18 133/64 H 99 11/02/17 16:12 11/02/17 16:12 11/02/17 16:12 11/02/17 16:12 11/02/17 16:12
--- NOTE | 2017-11-02 17:53 | ER Document Report ---
HPI - HPI Pain Level: 5 Notes: Patient is a 22-year-old female with no significant past medical history who presents to the ED complaining of a swollen bump area to the left side of her neck that has been there for 1.5 years, but over the last day has become more swollen and painful. Patient states that she has not noticed any surrounding redness, streaks, discharge. Patient states that she does make the area around the left side of her neck sore, but is still eating and drinking without any difficulties. Patient states that she does have nausea without any associated vomiting. She is having normal bowel movements. Denies any drug allergies or IV drug use. Patient does admit to smoking. Denies any headache, fever, head injury, drooling, hoarseness, changes in vision/speech/mentation/hearing, URI, sore throat, chest pain, palpitations, syncope, cough, shortness of breath, wheeze, dyspnea, abdominal pain, nausea/vomiting/diarrhea, urinary retention, dysuria, hematuria, or rash. - ROS Systems Reviewed and Negative: Yes All other systems reviewed and negative - REPRODUCTIVE Reproductive: DENIES: : - DERM Skin Color: Normal Past Medical History - Social History Smoking Status: Current Every Day Smoker Family History: Arthritis, CAD, Hyperlipidemia, Hypertension Patient has suicidal ideation: No Patient has homicidal ideation: No Pulmonary Medical History: Reports: Hx Bronchitis Renal/ Medical History: Denies: Hx Peritoneal Dialysis Psychiatric Medical History: Reports: Hx Attention Deficit Hyperactivity Disorder - Immunizations Immunizations up to date: Yes Hx Diphtheria, Pertussis, Tetanus Vaccination: Yes - 08/2014 Vertical Provider Document - CONSTITUTIONAL Agree With Documented VS: Yes Notes: PHYSICAL EXAMINATION: GENERAL: Well-appearing, well-nourished and in no acute distress. A&Ox4. Answers questions appropriately. Moves comfortably w/o notable distress HEAD: Atraumatic, normocephalic. EYES: Pupils equal round and reactive to light, extraocular movements intact, sclera anicteric, conjunctiva are normal. ENT: EAC clear b/l. TM's intact b/l without erythema, fluid, or perforation. Nares patent and with clear discharge. oropharynx no erythema without exudates. No tonsilar hypertrophy without erythema or exudate. No palatine shift. Uvula midline. No tongue protrusion. No drooling, hoarseness, or airway compromise. Moist mucous membranes. No sinus tenderness. NECK: Normal range of motion, supple without obvious lymphadenopathy. No rigidity/meningismus. + small 1.5cm diameter indurated area w/o obvious fluctuance noted. No pulsation and is mobile. + tenderness associated. LUNGS: Breath sounds clear to auscultation bilaterally and equal. No wheezes rales or rhonchi. No retractions HEART: Regular rate and rhythm without murmurs, rubs, gallops. ABDOMEN: Soft, nontender, nondistended abdomen. No guarding, no rebound. No masses appreciated. Normal bowel sounds present. No CVA tenderness bilaterally. NEUROLOGICAL: Normal speech, normal gait. PSYCH: Normal mood, normal affect. SKIN: see above. Warm, Dry, normal turgor, no rashes or lesions noted. - INFECTION CONTROL TRAVEL OUTSIDE OF THE [place] IN LAST 30 DAYS: No Course - Re-evaluation Re-evalutation: 11/02/17 18:45 Patient is an afebrile, well-hydrated, 22-year-old female who presents to the ED with an inflamed sebaceous cyst versus abscess based on H&P today. Vitals are acceptable without any significant tachycardia, tachypnea, or hypoxia. PE is otherwise unremarkable. Ultrasound was utilized to perform a needle incision and drainage with sebaceous material expressed. Patient declined wanting a complete incision and drainage performed with risk and benefit understood. Ultrasound and drainage performed by Dr. Acosta and myself. Wound culture was obtained. Patient is nontoxic-appearing and is tolerating p.o. without difficulties. Low suspicion for any sepsis, meningitis, severe dehydration, respiratory compromise, or other systemic emergent condition at this time. Patient is aware that condition can change from initial presentation and she needs to monitor symptoms closely and seek medical attention with any acute changes. I will be sending her home with a prescription for Keflex and Bactrim. Conservative measures for symptoms. Recheck with a general surgeon. Recheck with your PCM later this week or next week as well. Return to the ED with any worsening/concerning symptoms otherwise as reviewed in discharge. Patient is in agreement. - Vital Signs Vital signs: Temp Pulse Resp BP Pulse Ox 98.8 F 87 18 133/64 H 99 11/02/17 16:12 11/02/17 16:12 11/02/17 16:12 11/02/17 16:12 11/02/17 16:12 Procedures - Incision and Drainage Left Neck Time completed: 18:40 - Patient tolerated procedure well without any complications Type: Simple I&D procedure: Betadine prep applied Incision Method: Incision made with needle Amount/type of drainage: Scant sebaceous Discharge - Discharge Clinical Impression: Sebaceous cyst, Abscess Condition: Stable Disposition: HOME, SELF-CARE Instructions: Cephalexin ([facility]), Trimethoprim-Sulfa ([facility]) Additional Instructions: Keep the skin clean Wash with soap and water Tylenol/ibuprofen if needed Triple antibiotic ointment daily Take medication as directed Monitor for any worsening symptoms Recheck with your PCM in 3-5 days Call the general surgeon tomorrow to schedule an appointment for further evaluation and management Return to the ED with any worsening symptoms and/or development of fever, headache, chest pain, palpitations, syncope, shortness of breath, trouble breathing, abdominal pain, n/v/d, abscess, purulent discharge, red streaks, worsening swelling, or other worsening symptoms that are concerning to you. Prescriptions: Cephalexin Monohydrate [Keflex 500 mg Capsule] 500 mg PO BID #20 capsule Sulfamethoxazole/Trimethoprim [Bactrim Ds Tablet] 1 each PO BID #20 tablet Forms: Smoking Cessation Education Referrals: BELKYS YA MD [ACTIVE STAFF] - 11/04/17
[2017-11-02 18:59] VITALS: BP 132/62
== END 2017-11-02 18:55 | disposition home or self-care (01) ==
LOC: ER 16:05
PROC: 0H94XZZ Drainage of Neck Skin, External Approach (ICD-10-PCS; principal; 2017-11-02)
DX: L72.3 Sebaceous cyst (principal); F17.200 Nicotine dependence, unspecified, uncomplicated
CPT/HCPCS: 87070; 87075; 87077; 87205; 99283

== ENCOUNTER 2017-11-20 14:15 | Emergency (ER) | payer SELFPAY ==
--- NOTE | 2017-11-20 14:29 | ER Document Report ---
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 No history of MRSA. The rash is dry and pink. She does lap dances with short shorts. Associated Symptoms: None Exacerbated by: Denies Relieved by: Denies Similar symptoms previously: No - ROS ROS below otherwise negative: Yes Systems Reviewed and Negative: Yes All other systems reviewed and negative - REPRODUCTIVE Reproductive: DENIES: : Past Medical History - General Information source: Patient - Social History Smoking Status: Current Some Day Smoker Frequency of alcohol use: Social Drug Abuse: Marijuana Family History: Arthritis, CAD, Hyperlipidemia, Hypertension Patient has suicidal ideation: No Patient has homicidal ideation: No Pulmonary Medical History: Reports: Hx Bronchitis Renal/ Medical History: Denies: Hx Peritoneal Dialysis Psychiatric Medical History: Reports: Hx Attention Deficit Hyperactivity Disorder Surgical Hx: Negative - Immunizations Immunizations up to date: Yes Hx Diphtheria, Pertussis, Tetanus Vaccination: Yes - 08/2014 Vertical Provider Document - CONSTITUTIONAL Agree With Documented VS: Yes Exam Limitations: No Limitations - INFECTION CONTROL TRAVEL OUTSIDE OF THE [place] IN LAST 30 DAYS: No - DERM Integumentary: Rash - Left buttocks tinea dry pink rash, no abscess Discharge - Discharge Clinical Impression: Tinea Condition: Good Disposition: HOME, SELF-CARE Instructions: Skin Fungus ([facility]), Topical Antifungal ([facility]) Additional Instructions: Skin fungus is contagious he must wear long shorts in the and must wear long pants shorts there is no skin to skin contact [id number] antifungal cream well past the border of the rash 3 times a day See aircraft layout worker if it persists Forms: Return to Work Referrals: ISA LOVE DO [ACTIVE STAFF] - Follow up as needed
[2017-11-20 14:30] VITALS: BP 127/69
== END 2017-11-20 14:46 | disposition home or self-care (01) ==
LOC: ER 14:15
DX: B35.9 Dermatophytosis, unspecified (principal); F17.200 Nicotine dependence, unspecified, uncomplicated
CPT/HCPCS: 99282

== ENCOUNTER 2018-01-10 13:23 | Emergency (ER) | payer SELFPAY ==
[2018-01-10 13:33] VITALS: BP 122/75
--- NOTE | 2018-01-10 14:38 | ER Document Report ---
HPI - HPI Pain Level: 4 - REPRODUCTIVE Reproductive: DENIES: : Past Medical History - General Information source: Patient - Social History Smoking Status: Unknown if Ever Smoked Lives with: Spouse/Significant other Family History: Arthritis, CAD, Hyperlipidemia, Hypertension Pulmonary Medical History: Reports: Hx Bronchitis Renal/ Medical History: Denies: Hx Peritoneal Dialysis Psychiatric Medical History: Reports: Hx Attention Deficit Hyperactivity Disorder - Immunizations Immunizations up to date: Yes Hx Diphtheria, Pertussis, Tetanus Vaccination: Yes - 08/2014 Vertical Provider Document - CONSTITUTIONAL Agree With Documented VS: Yes Exam Limitations: No Limitations General Appearance: No Apparent Distress - INFECTION CONTROL TRAVEL OUTSIDE OF THE [place] IN LAST 30 DAYS: No - NEURO Level of Consciousness: Awake - DERM Integumentary: Rash - fungal appearing left buttocks rash, 1 abscess with crusted center, Abscess Course - Vital Signs Vital signs: Temp Pulse Resp BP Pulse Ox 98.2 F 85 16 122/75 98 01/10/18 13:32 01/10/18 13:32 01/10/18 13:32 01/10/18 13:32 01/10/18 13:32 Procedures - Incision and Drainage Left Buttock Time completed: 15:20 Type: Simple Anesthetic type: 1% Lidocaine mL's of anesthetic: 3 Blade size: 11 I&D procedure: Betadine prep applied Incision Method: Incision made by scalpel - x cut Amount/type of drainage: moderate pus Discharge - Discharge Clinical Impression: I and D left buttocks abscess, Tinea corporis Condition: Good Disposition: HOME, SELF-CARE Instructions: Abscess ([facility]), Post Incision and Drainage, Ringworm (Tinea Corporis) ([facility]), Topical Antifungal ([facility]), Trimethoprim-Sulfa ([facility]) Additional Instructions: Topical antifungal cream 3 times a day to the rash Shower daily with antibacterial soap dry dressing over the abscess incision Return to the emergency room for any worsening of the symptoms Prescriptions: Ibuprofen [Motrin 600 mg Tablet] 600 mg PO Q8HP PRN #30 tablet PRN Reason: Sulfamethoxazole/Trimethoprim [Sulfamethoxazole-Tmp Ds Tablet] 1 each PO BID # 14 tablet Referrals: LOCAL,NO [NO LOCAL MD] - Follow up as needed
[2018-01-10] MEDS ORDERED: LIDOCAINE 4%/TETRACAINE 0.5%/EPI 0.18% 5 ML TOPICAL SOLN TOP ONE (14:42)
== END 2018-01-10 15:31 | disposition home or self-care (01) ==
LOC: ER 13:23
PROC: 0H98XZZ Drainage of Buttock Skin, External Approach (ICD-10-PCS; principal; 2018-01-10)
DX: B35.4 Tinea corporis (principal); L02.31 Cutaneous abscess of buttock
CPT/HCPCS: 99283; 10060; J3490

== ENCOUNTER 2018-06-10 23:37 | Emergency (ER) | payer SELFPAY ==
[2018-06-11 00:34] LABS: AMORPHOUS SEDIMENT,URINE TRACE /HPF; APPEARANCE,URINE CLOUDY; BILIRUBIN,URINE NEGATIVE (NEGATIVE); COLOR,URINE AMBER; GLUCOSE, URINE NEGATIVE (NEGATIVE); KETONES,URINE 20 mg/dL (NEGATIVE); LEUKOCYTE ESTERASE,URINE MODERATE (NEGATIVE); NITRITE,URINE NEGATIVE (NEGATIVE); PROTEIN,URINE NEGATIVE (NEGATIVE); URINE SPECIFIC GRAVITY 1.028
[2018-06-11 01:03] VITALS: BP 144/81
[2018-06-11] MEDS ORDERED: ONDANSETRON HCL INJ/PF 4 MG/2 ML SDV IV ONE (01:08)
[2018-06-11] MEDS ORDERED: RINGERS SOLUTION,LACTATED 1,000 ML IV ONE (01:08)
[2018-06-11 01:44] LABS: ABSOLUTE BASOPHILS # (AUTO) 0.1 10^3/uL (0.0-0.2); ABSOLUTE LYMPHOCYTES (AUTO) 1.6 10^3/uL (0.5-4.7); ABSOLUTE MONOCYTES (AUTO) 0.8 10^3/uL (0.1-1.4); ABSOLUTE NEUT (AUTO) 9.3 10^3/uL (1.7-8.2); BASOPHILS % (AUTO) 0.5 % (0-2); EOSINOPHILS % (AUTO) 0.2 % (0-6); HEMATOCRIT 38.3 % (36.0-47.0); LYMPHOCYTES % (AUTO) 13.5 % (13-45); MEAN CORPUSCULAR HEMOGLOBIN 27.2 pg (27.0-33.4); MEAN CORPUSCULAR HGB CONC 33.8 g/dL (32.0-36.0); MEAN CORPUSCULAR VOLUME 80 fl (80-97); MONOCYTES % (AUTO) 6.5 % (3-13); PLATELET COUNT 170 10^3/uL (150-450); RED BLOOD COUNT 4.77 10^6/uL (3.72-5.28); RED CELL DISTRIBUTION WIDTH 14.9 % (11.5-14.0); SEGMENTED NEUTROPHILS % (AUTO) 79.3 % (42-78); TOTAL CELLS COUNTED % (AUTO) 100 %; WHITE BLOOD COUNT 11.8 10^3/uL (4.0-10.5)
[2018-06-11 02:11] LABS: ALANINE AMINOTRANSFERASE 21 U/L (9-52); ALBUMIN 4.9 g/dL (3.5-5.0); ALKALINE PHOSPHATASE 62 U/L (38-126); ANION GAP 13 (5-19); ASPARTATE AMINO TRANSFERASE 17 U/L (14-36); BILIRUBIN,DIRECT 0.2 mg/dL (0.0-0.4); BILIRUBIN,TOTAL 0.5 mg/dL (0.2-1.3); BLOOD UREA NITROGEN 11 mg/dL (7-20); CALCIUM 9.8 mg/dL (8.4-10.2); CARBON DIOXIDE 23 mmol/L (22-30); CHLORIDE 104 mmol/L (98-107); GLUCOSE 86 mg/dL (75-110); LIPASE 120.6 U/L (23-300); POTASSIUM 4.1 mmol/L (3.6-5.0); SODIUM 139.6 mmol/L (137-145); TOTAL PROTEIN 7.8 g/dL (6.3-8.2)
[2018-06-11] MEDS ORDERED: CEPHALEXIN 500 MG CAPSULE PO ONE (03:08)
[2018-06-11] MEDS ORDERED: ONDANSETRON ODT 4 MG TAB (6 TAB/ER DISP) PO PRN (03:10)
--- NOTE | 2018-06-11 03:13 | ER Document Report ---
ED General - General Chief Complaint: Nausea/Vomiting Stated Complaint: VOMITING Time Seen by Provider: 06/11/18 01:07 Notes: Patient is a 23-year-old female without chronic medical problems who presents with 1 week of intermittent nausea and vomiting. Patient states that the symptoms started gradually, have been unchanged since onset. Patient believes she might be . She has not trying to improve her symptoms. Eating or drinking worsens her symptoms. Denies any associated abdominal pain. No history of similar symptoms in the past. Has not seen her primary doctor regarding today's concerns. No history of abdominal surgeries. TRAVEL OUTSIDE OF THE [place] IN LAST 30 DAYS: No - HPI Onset: Last week Onset/Duration: Gradual Quality of pain: No pain Severity: Moderate Pain Level: Denies Associated symptoms: Vomiting Exacerbated by: Food Relieved by: Denies Similar symptoms previously: No Recently seen / treated by doctor: No - Related Data Allergies/Adverse Reactions: No Known Allergies Allergy (Verified 01/10/18 13:29) Past Medical History - General Information source: Patient - Social History Smoking Status: Never Smoker Chew tobacco use (# tins/day): No Frequency of alcohol use: None Drug Abuse: None Lives with: Family Family History: Arthritis, CAD, Hyperlipidemia, Hypertension Patient has suicidal ideation: No Patient has homicidal ideation: No Pulmonary Medical History: Reports: Hx Bronchitis Renal/ Medical History: Denies: Hx Peritoneal Dialysis Psychiatric Medical History: Reports: Hx Attention Deficit Hyperactivity Disorder - Immunizations Immunizations up to date: Yes Hx Diphtheria, Pertussis, Tetanus Vaccination: Yes - 08/2014 Review of Systems - Review of Systems Notes: Constitutional: Negative for fever. HENT: Negative for sore throat. Eyes: Negative for visual changes. Cardiovascular: Negative for chest pain. Respiratory: Negative for shortness of breath. Gastrointestinal: Negative for abdominal pain, positive for nausea and vomiting Genitourinary: Positive for dysuria. Musculoskeletal: Negative for back pain. Skin: Negative for rash. Neurological: Negative for headaches, weakness or numbness. 10 point ROS negative except as marked above and in HPI. Physical Exam - Vital signs Vitals: Temp Pulse Resp BP Pulse Ox 98.9 F 79 16 144/81 H 100 06/11/18 01:02 06/11/18 01:02 06/11/18 01:02 06/11/18 01:02 06/11/18 01:02 Interpretation: Hypertensive Notes: PHYSICAL EXAMINATION: GENERAL: Well-appearing, well-nourished and in no acute distress. HEAD: Atraumatic, normocephalic. EYES: Pupils equal round and reactive to light, extraocular movements intact, sclera anicteric, conjunctiva are normal. ENT: nares patent, oropharynx clear without exudates. Moist mucous membranes. NECK: Normal range of motion, supple without lymphadenopathy LUNGS: Breath sounds clear to auscultation bilaterally and equal. No wheezes rales or rhonchi. HEART: Regular rate and rhythm without murmurs ABDOMEN: Soft, nontender, normoactive bowel sounds. No guarding, no rebound. No masses appreciated. EXTREMITIES: Normal range of motion, no pitting or edema. No cyanosis. NEUROLOGICAL: No focal neurological deficits. Moves all extremities spontaneously and on command. PSYCH: Normal mood, normal affect. SKIN: Warm, Dry, normal turgor, no rashes or lesions noted. Course - Re-evaluation Re-evalutation: 06/11/18 03:10 Presentation of a well-appearing 23-year-old female with complaints of nausea and vomiting for the last 1 week. Patient reports that she is unable to keep anything down although notably appears quite well hydrated, no evidence of tachycardia or hypotension. Renal function within normal limits. Labs are broadly unremarkable. Patient denies any abdominal pain by history and has no focal abdominal tenderness on exam. Clinical history and exam are not consistent with pancreatitis, biliary pathology, bowel obstruction or perforatio n. She is not . Her urinalysis does show findings consistent with an acute urinary tract infection which may be causing some of her symptoms. A culture has been sent and the patient has been started on cephalexin. At this time will discharge with return precautions and follow-up recommendations. Verbal discharge instructions given a the bedside and opportunity for questions given. Medication warnings reviewed. Patient is in agreement with this plan and has verbalized understanding of return precautions and the need for primary care follow-up in the next 24-72 hours. - Vital Signs Vital signs: Temp Pulse Resp BP Pulse Ox 98.9 F 79 16 144/81 H 100 06/11/18 01:02 06/11/18 01:02 06/11/18 01:02 06/11/18 01:02 06/11/18 01:02 - Laboratory Result Diagrams: 06/11/18 01:37 06/11/18 01:37 Laboratory results interpreted by me: 06/10/18 06/11/18 23:45 01:37 WBC 11.8 H RDW 14.9 H Seg Neutrophils % 79.3 H Absolute Neutrophils 9.3 H Urine Ketones 20 H Urine Urobilinogen 4.0 H Ur Leukocyte Esterase MODERATE H Discharge - Discharge Clinical Impression: Nausea and vomiting Qualifiers: Vomiting type: unspecified Vomiting Intractability: non-intractable Qualified Code(s): R11.2 - Nausea with vomiting, unspecified Urinary tract infection Qualifiers: Urinary tract infection type: acute cystitis Hematuria presence: without hematuria Qualified Code(s): N30.00 - Acute cystitis without hematuria Condition: Good Disposition: HOME, SELF-CARE Additional Instructions: Your urine shows findings consistent with a urinary tract infection. Please take all the antibiotics as directed even if your symptoms have improved. Return to emergency room if you develop fever >101F, worsening vomiting, become lethargic, have severe pain in your sides, or any other symptoms that are concerning to you. You have been prescribed Zofran; please use as prescribed as needed for your nausea. Follow up with your doctor as soon as possible regarding today's emergent visit and your symptoms of nausea. Prescriptions: Cephalexin Monohydrate [Keflex 500 mg Capsule] 500 mg PO Q6H 5 Days capsule
== END 2018-06-11 03:50 | disposition home or self-care (01) ==
LOC: ER 23:37
DX: N30.00 Acute cystitis without hematuria (principal); R11.2 Nausea with vomiting, unspecified
CPT/HCPCS: 99283; 96361; 96374; 36415; 87086; 83690; 85025; 81025; 80053; 81001; J2405; J7120

== ENCOUNTER 2018-07-01 10:33 | Emergency (ER) | payer MEDICAID ==
--- NOTE | 2018-07-01 11:56 | ER Document Report ---
ED General - General Chief Complaint: Abdominal Pain Stated Complaint: FALL/STOMACH PAIN Time Seen by Provider: 07/01/18 11:53 Primary Care Provider: JOE REYNA CNM [Primary Care Provider] - Follow up as needed TRAVEL OUTSIDE OF THE [place] IN LAST 30 DAYS: No - HPI Notes: Patient is a 23-year-old female that presents to the emergency department for chief complaint of pelvic pain. Patient is with history of 1 miscarriage. She reports she is currently about 10 weeks with twins. She had an ultrasound done at the [facility] for confirmation of intrauterine gestation. She states yesterday she was playing on an arch-shaped metal bar at a playground. She slipped and landed on her abdomen. She states the bar hit across her upper abdomen but she started having lower abdominal cramping a few hours afterwards. She denies any vaginal bleeding or discharge. She denies any nausea, vomiting, fevers and chills. She states her abdomen is only mildly sore up high where the bar was hit but she is concerned because of the lower pelvic cramping. Past Medical History: Negative Past Surgical History: Negative Social History: Occasional alcohol but none since becoming . Denies tobacco and drug use Family History: Reviewed and noncontributory for presenting illness Allergies: Reviewed, see documented allergy list. REVIEW OF SYSTEMS: CONSTITUTIONAL : No fever No chills No diaphoresis No recent illness EENT: No vision changes No congestion No sore throat CARDIOVASCULAR: No chest pain No palpitations RESPIRATORY: No shortness of breath No cough No difficulty breathing GASTROINTESTINAL: abdominal pain No nausea No vomiting No diarrhea GENITOURINARY: No dysuria No hematuria No difficulty urinating MUSCULOSKELETAL: No back pain No leg pain No arm pain SKIN: No rashes No lesions LYMPHATIC: No swollen, enlarged glands. NEUROLOGICAL: No lightheadedness No headache No weakness No paresthesias PSYCHIATRIC: No anxiety No depression PHYSICAL EXAMINATION: Vital signs reviewed, nursing noted reviewed. GENERAL: Well-appearing, well-nourished and in no acute distress. HEAD: Atraumatic, normocephalic. EYES: Eyes appear normal, extraocular movements intact, sclera anicteric, conjunctiva are normal. ENT: nares patent, oropharynx clear without exudates. Moist mucous membranes. NECK: Normal range of motion, supple without lymphadenopathy LUNGS: Breath sounds clear to auscultation bilaterally and equal. No wheezes rales or rhonchi. HEART: Regular rate and rhythm without murmurs ABDOMEN: Soft, mild suprapubic tenderness, normoactive bowel sounds. No rebound, guarding, or rigidity. No masses appreciated. EXTREMITIES: Nontender, good range of motion, no pitting or edema. NEUROLOGICAL: No focal neurological deficits. Moves all extremities spontaneously Motor and sensory grossly intact on exam. PSYCH: Normal mood, normal affect. SKIN: Warm, Dry, normal turgor, no rashes or lesions noted on exposed skin - Related Data Allergies/Adverse Reactions: No Known Allergies Allergy (Verified 07/01/18 11:45) Past Medical History - Social History Smoking Status: Never Smoker Chew tobacco use (# tins/day): No Frequency of alcohol use: Occasional Family History: Arthritis, CAD, Hyperlipidemia, Hypertension Patient has suicidal ideation: No Patient has homicidal ideation: No Pulmonary Medical History: Reports: Hx Bronchitis Renal/ Medical History: Denies: Hx Peritoneal Dialysis Psychiatric Medical History: Reports: Hx Attention Deficit Hyperactivity D isorder - Immunizations Immunizations up to date: Yes Hx Diphtheria, Pertussis, Tetanus Vaccination: Yes - 08/2014 Physical Exam - Vital signs Vitals: Temp Pulse Resp BP Pulse Ox 98.3 F 91 20 132/73 H 100 07/01/18 10:59 07/01/18 10:59 07/01/18 10:59 07/01/18 10:59 07/01/18 10:59 Course - Re-evaluation Re-evalutation: 07/01/18 11:56 Vitals reviewed. Nursing notes reviewed. Patient offered Tylenol for pain but declined. Ultrasound will be obtained to evaluate the condition of her fetuses. Patient is otherwise comfortable currently. 07/01/18 13:42 Ultrasound shows 2 living intrauterine gestations measuring 10 weeks 3 days and 10 weeks 2 days. The remainder of her lab work is unremarkable. Patient does have acute urinary tract infection which will be treated with Macrobid. She will follow with CARDIAC CATHETERIZATION TECHNICIAN for close reevaluation. She was counseled on return precautions and verbalized understanding. She is stable at discharge. Laboratory 07/01/18 07/01/18 07/01/18 12:18 12:35 12:35 WBC 10.1 RBC 4.98 Hgb 13.9 Hct 40.3 MCV 81 MCH 27.9 MCHC 34.4 RDW 15.2 H Plt Count 174 Seg Neutrophils % 79.3 H Lymphocytes % 12.4 L Monocytes % 7.9 Eosinophils % 0.2 Basophils % 0.2 Absolute Neutrophils 8.0 Absolute Lymphocytes 1.2 Absolute Monocytes 0.8 Absolute Eosinophils 0.0 Absolute Basophils 0.0 Sodium 137.6 Potassium 4.3 Chloride 106 Carbon Dioxide 22 Anion Gap 10 BUN 9 Creatinine 0.60 Est GFR ( Amer) > 60 Est GFR (Non-Af Amer) > 60 Glucose 83 Calcium 9.9 Lipase 99.8 Urine Color YELLOW Urine Appearance CLOUDY Urine pH 6.0 Ur Specific Martha 1.021 Urine Protein NEGATIVE Urine Glucose (UA) NEGATIVE Urine Ketones NEGATIVE Urine Blood NEGATIVE Urine Nitrite NEGATIVE Urine Bilirubin NEGATIVE Urine Urobilinogen 4.0 H Ur Leukocyte Esterase LARGE H Urine WBC (Auto) 7 Urine RBC (Auto) 5 Urine Bacteria (Auto) 1+ Squamous Epi Cells Auto 5 Amorphous Sediment Auto TRACE Urine Mucus (Auto) OCC Urine Ascorbic Acid NEGATIVE Blood Type Rhogam Indicated 07/01/18 12:35 WBC RBC Hgb Hct MCV MCH MCHC RDW Plt Count Seg Neutrophils % Lymphocytes % Monocytes % Eosinophils % Basophils % Absolute Neutrophils Absolute Lymphocytes Absolute Monocytes Absolute Eosinophils Absolute Basophils Sodium Potassium Chloride Carbon Dioxide Anion Gap BUN Creatinine Est GFR ( Amer) Est GFR (Non-Af Amer) Glucose Calcium Lipase Urine Color Urine Appearance Urine pH Ur Specific Martha Urine Protein Urine Glucose (UA) Urine Ketones Urine Blood Urine Nitrite Urine Bilirubin Urine Urobilinogen Ur Leukocyte Esterase Urine WBC (Auto) Urine RBC (Auto) Urine Bacteria (Auto) Squamous Epi Cells Auto Amorphous Sediment Auto Urine Mucus (Auto) Urine Ascorbic Acid Blood Type O POSITIVE Rhogam Indicated RHOGAM NOT INDICATED Obstetrics Ultrasound 07/01/18 11:53 IMPRESSION: LIVING TWIN INTRAUTERINE TWIN A EGA: 10 weeks 2 days. TWIN B EGA: 10 weeks 3 days. Trimester of : First - 0 to 13 weeks. - Vital Signs Vital signs: Temp Pulse Resp BP Pulse Ox 98.3 F 91 20 132/73 H 100 07/01/18 10:59 07/01/18 10:59 07/01/18 10:59 07/01/18 10:59 07/01/18 10:59 - Laboratory Result Diagrams: 07/01/18 12:35 07/01/18 12:35 Laboratory results interpreted by me: 07/01/18 07/01/18 12:18 12:35 RDW 15.2 H Seg Neutrophils % 79.3 H Lymphocytes % 12.4 L Urine Urobilinogen 4.0 H Ur Leukocyte Esterase LARGE H Discharge - Discharge Clinical Impression: Abdominal pain affecting UTI (urinary tract infection) Qualifiers: Urinary tract infection type: site unspecified Hematuria presence: without hematuria Qualified Code(s): N39.0 - Urinary tract infection, site not specified Condition: Stable Disposition: HOME, SELF-CARE Instructions: Urinary Tract Infection ([facility]), Pelvic Pain in ([facility]) Additional Instructions: Please return to the emergency department if you have any worsening, or concern of your symptoms. Please return to the emergency department if you develop chest pain, difficulty breathing, severe abdominal pain, or ongoing vomiting. Please follow-up with your primary care physician in 2-3 days and any other r ecommended physicians. If prescribed, take all medications as directed. If you have any questions or concerns do not hesitate to return the emergency department for evaluation. Prescriptions: Nitrofurantoin Macrocrystal [Macrodantin] 100 mg PO BID #10 capsule Referrals: JOE REYNA CNM [Primary Care Provider] - Follow up as needed [facility] [Provider Group] - Follow up in 3-5 days
[2018-07-01 12:45] LABS: AMORPHOUS SEDIMENT,URINE TRACE /HPF; APPEARANCE,URINE CLOUDY; BILIRUBIN,URINE NEGATIVE (NEGATIVE); COLOR,URINE YELLOW; GLUCOSE, URINE NEGATIVE (NEGATIVE); KETONES,URINE NEGATIVE (NEGATIVE); LEUKOCYTE ESTERASE,URINE LARGE (NEGATIVE); NITRITE,URINE NEGATIVE (NEGATIVE); PROTEIN,URINE NEGATIVE (NEGATIVE); URINE SPECIFIC GRAVITY 1.021
[2018-07-01 12:46] LABS: ABSOLUTE LYMPHOCYTES (AUTO) 1.2 10^3/uL (0.5-4.7); ABSOLUTE MONOCYTES (AUTO) 0.8 10^3/uL (0.1-1.4); BASOPHILS % (AUTO) 0.2 % (0-2); EOSINOPHILS % (AUTO) 0.2 % (0-6); HEMATOCRIT 40.3 % (36.0-47.0); HEMOGLOBIN 13.9 g/dL (12.0-15.5); LYMPHOCYTES % (AUTO) 12.4 % (13-45); MEAN CORPUSCULAR HEMOGLOBIN 27.9 pg (27.0-33.4); MEAN CORPUSCULAR HGB CONC 34.4 g/dL (32.0-36.0); MEAN CORPUSCULAR VOLUME 81 fl (80-97); MONOCYTES % (AUTO) 7.9 % (3-13); PLATELET COUNT 174 10^3/uL (150-450); RED BLOOD COUNT 4.98 10^6/uL (3.72-5.28); RED CELL DISTRIBUTION WIDTH 15.2 % (11.5-14.0); SEGMENTED NEUTROPHILS % (AUTO) 79.3 % (42-78); TOTAL CELLS COUNTED % (AUTO) 100 %; WHITE BLOOD COUNT 10.1 10^3/uL (4.0-10.5)
[2018-07-01 12:57] LABS: ANION GAP 10 (5-19); BLOOD UREA NITROGEN 9 mg/dL (7-20); CALCIUM 9.9 mg/dL (8.4-10.2); CARBON DIOXIDE 22 mmol/L (22-30); CHLORIDE 106 mmol/L (98-107); GLUCOSE 83 mg/dL (75-110); LIPASE 99.8 U/L (23-300); POTASSIUM 4.3 mmol/L (3.6-5.0); SODIUM 137.6 mmol/L (137-145)
--- NOTE | 2018-07-01 13:25 | RADIOLOGY REPORT (SQ) ---
EXAM DESCRIPTION: U/S [id number] TRNABD 1GES W/ODOP; U/S 37016 + EACH ADDIT GEST COMPLETED DATE/TIME: 07/01/2018 1:14 pm REASON FOR STUDY: pelvic pain; PELVIC PAIN COMPARISON: None. TECHNIQUE: Transvaginal static and realtime grayscale images acquired of the pelvis. Additional berna cted spectral and color Doppler images recorded. All images stored on PACs. bHCG: Not available. CLINICAL DATES: 10 weeks 3 days LIMITATIONS: None. FINDINGS: Twin Intra-uterine gestation TYPE OF TWIN: Dichorionic Diamniotic. Two gestation sacs. Two yolk sacs. TWIN A: ULTRASOUND EGA: 10 weeks 2 days ULTRASOUND TALIB: 01/25/2019 EFW: Not applicable. Under 20 weeks. CRL: 3.3 cm GESTATIONAL SAC: Not applicable. FP present. SURVEY: Too early to assess. FHR: 182 bpm. AMNIOTIC FLUID: Adequate amount. PLACENTA: Too early to assess. SUBCHORIONIC BLEED: No. SIZE OF BLEED: Not applicable. TWIN B: ULTRASOUND EGA: 10 weeks 3 days ULTRASOUND TALIB: 01/24/2019 EFW: Not applicable. Under 20 weeks. CRL: 3.5 cm GESTATIONAL SAC: Not applicable. FP present. SURVEY: Too early to assess. FHR: 173 bpm. AMNIOTIC FLUID: Adequate amount. SUBCHORIONIC BLEED: No. SIZE OF BLEED: Not applicable. UTERUS: No masses. No anomalies. CERVICAL LENGTH: 2.5 cm. Closed. RIGHT ADNEXA: Normal ovary with normal vascular flow. No adnexal free fluid. No adnexal masses. LEFT ADNEXA: Ovary not identified due to poor acoustical window No adnexal free fluid. No adnexal masses. FREE FLUID: None. OTHER: No other significant finding. IMPRESSION: LIVING TWIN INTRAUTERINE TWIN A EGA: 10 weeks 2 days. TWIN B EGA: 10 weeks 3 days. Trimester of : First - 0 to 13 weeks. TECHNICAL DOCUMENTATION: JOB ID: [id number] [employer]- All Rights Reserved rev Reading location - IP/workstation name: [facility]
--- NOTE | 2018-07-01 13:25 | RADIOLOGY REPORT (SQ) ---
EXAM DESCRIPTION: U/S [id number] TRNABD 1GES W/ODOP; U/S 54879 + EACH ADDIT GEST COMPLETED DATE/TIME: 07/01/2018 1:14 pm REASON FOR STUDY: pelvic pain; PELVIC PAIN COMPARISON: None. TECHNIQUE: Transvaginal static and realtime grayscale images acquired of the pelvis. Additional berna cted spectral and color Doppler images recorded. All images stored on PACs. bHCG: Not available. CLINICAL DATES: 10 weeks 3 days LIMITATIONS: None. FINDINGS: Twin Intra-uterine gestation TYPE OF TWIN: Dichorionic Diamniotic. Two gestation sacs. Two yolk sacs. TWIN A: ULTRASOUND EGA: 10 weeks 2 days ULTRASOUND TALIB: 01/25/2019 EFW: Not applicable. Under 20 weeks. CRL: 3.3 cm GESTATIONAL SAC: Not applicable. FP present. SURVEY: Too early to assess. FHR: 182 bpm. AMNIOTIC FLUID: Adequate amount. PLACENTA: Too early to assess. SUBCHORIONIC BLEED: No. SIZE OF BLEED: Not applicable. TWIN B: ULTRASOUND EGA: 10 weeks 3 days ULTRASOUND TALIB: 01/24/2019 EFW: Not applicable. Under 20 weeks. CRL: 3.5 cm GESTATIONAL SAC: Not applicable. FP present. SURVEY: Too early to assess. FHR: 173 bpm. AMNIOTIC FLUID: Adequate amount. SUBCHORIONIC BLEED: No. SIZE OF BLEED: Not applicable. UTERUS: No masses. No anomalies. CERVICAL LENGTH: 2.5 cm. Closed. RIGHT ADNEXA: Normal ovary with normal vascular flow. No adnexal free fluid. No adnexal masses. LEFT ADNEXA: Ovary not identified due to poor acoustical window No adnexal free fluid. No adnexal masses. FREE FLUID: None. OTHER: No other significant finding. IMPRESSION: LIVING TWIN INTRAUTERINE TWIN A EGA: 10 weeks 2 days. TWIN B EGA: 10 weeks 3 days. Trimester of : First - 0 to 13 weeks. TECHNICAL DOCUMENTATION: JOB ID: [id number] [employer]- All Rights Reserved rev Reading location - IP[facility]workstation name: [email or web address]-
[2018-07-01] MEDS ORDERED: NITROFURANTOIN MONOHYD/M-CRYST 100 MG CAPSULE PO ONE (13:42)
[2018-07-01 14:08] VITALS: BP 118/50
== END 2018-07-01 14:03 | disposition home or self-care (01) ==
LOC: ER 10:33
DX: O23.41 Unspecified infection of urinary tract in pregnancy, first trimester (principal); O26.91 Pregnancy related conditions, unspecified, first trimester; R10.9 Unspecified abdominal pain; R10.2 Pelvic and perineal pain; Z3A.10 10 weeks gestation of pregnancy
CPT/HCPCS: 99284; 86900; 86901; 36415; 83690; 85025; 80048; 81001; 76801; 76802; J3490; J8499

== ENCOUNTER → 2018-07-05 | Outpatient (CLI) | payer MEDICAID ==
--- NOTE | 2018-07-05 13:43 | RADIOLOGY REPORT (SQ) ---
EXAM DESCRIPTION: U/S 54810 + EACH ADDIT GEST COMPLETE DATE/TIME: 07/05/2018 12:54 pm REASON FOR STUDY: S/D Z34.81 ENCOUNTER FOR SUPRVSN OF NORMAL , FIRST TRIM FINDINGS: Please see combined report for performance of procedure and radiologic supervision and int erpretation. IMPRESSION: Please see combined report for performance of procedure and radiologic supervision and i nterpretation. Reading location - IP/workstation name: [email or web address]
--- NOTE | 2018-07-05 15:56 | RADIOLOGY REPORT (SQ) ---
EXAM DESCRIPTION: U/S [id number] TRNABD 1GES W/ODOP COMPLETED DATE/TIME: 07/05/2018 12:54 pm REASON FOR STUDY: Z34.81 ENCOUNTER FOR SUPRVSN OF NORMAL , FIRST TRIMESTER Z34.81 ENCOUNTE R FOR SUPRVSN OF NORMAL , FIRST TRIM COMPARISON: 07/01/2018 TECHNIQUE: Transabdominal static and realtime grayscale images acquired of the pelvis. Additional se lected spectral and color Doppler images recorded. All images stored on PACs. bHCG: Not available. CLINICAL DATES: TALIB: 01/26/2019. EGA: 10 weeks 5 days LIMITATIONS: None. FINDINGS: FETUS: Twin Living intrauterine . TYPE OF TWIN: Dichorionic Diamniotic twin . TWIN A: ULTRASOUND EGA: 11 weeks 0 days ULTRASOUND TALIB: 01/24/2019 EFW: Not applicable less than 20 weeks. CRL: 4.2 cm FHR: 169 beats per minute. SURVEY: Too early to assess. AMNIOTIC FLUID: Adequate amount. PLACENTA: Not yet developed due to early gestation. SUBCHORIONIC BLEED: No. SIZE OF BLEED: Not applicable. TWIN B: ULTRASOUND EGA: 11 weeks 0 days ULTRASOUND TALIB: 01/24/2019 EFW: Not appliable less than 20 weks. CRL: 4.2 cm FHR: 175 beats per minute. SURVEY: Too early to assess. AMNIOTIC FLUID: Adequate amount. PLACENTA: Not yet developed due to early gestation. SUBCHORIONIC BLEED: No. SIZE OF BLEED: Not applicable. UTERUS: The uterus measures 13.5 x 7.6 x 8.4 cm. No masses. No anomalies. CERVICAL LENGTH: 3.5 cm. Closed. RIGHT ADNEXA: Not visualized due to overlying bowel gas. LEFT ADNEXA: Not visualized due to overlying bowel gas. FREE FLUID: None. OTHER: No other significant finding. IMPRESSION: LIVING TWIN INTRAUTERINE . TWIN A EGA: 11 weeks 0 days TWIN B EGA: 11 weeks 0 days Trimester of : First - 0 to 13 weeks. TECHNICAL DOCUMENTATION: JOB ID: [id number] [employer]- All Rights Reserved rev-09/03 Reading location - IP/workstation name: [email or web address]
== END ==
LOC: RAD 12:08
PROVIDERS: ATTEND Midwife
DX: O30.041 Twin pregnancy, dichorionic/diamniotic, first trimester (principal)
CPT/HCPCS: 76801; 76802

== ENCOUNTER 2018-07-27 17:56 | Emergency (ER) | payer MEDICAID ==
--- NOTE | 2018-07-27 19:35 | ER Document Report ---
HPI - HPI Patient complains to provider of: Bilateral hand swelling Time Seen by Provider: 07/27/18 19:28 Onset: This afternoon Pain Level: 2 Context: Patient presents to the emergency department with complaints that both her hands became swollen when she was walking home from work. Her hands are not swollen now. Patient is 14 weeks . She denies all other symptoms such as fever vomiting diarrhea abdominal pain. She denies vaginal discharge. She denies vaginal bleeding. Patient followed up with her WIRE REPAIRER July 12. She is having no problems with this . She is eating drinking voiding as normal. Associated Symptoms: None Exacerbated by: Denies Relieved by: Denies Similar symptoms previously: No Recently seen / treated by doctor: No - REPRODUCTIVE LMP: 04/19/18 Reproductive: REPORTS: : - DERM Skin Color: Normal Past Medical History - General Information source: Patient Last Menstrual Period: 04/19/18 14 weeks - Social History Smoking Status: Never Smoker Cigarette use (# per day): No Frequency of alcohol use: None Drug Abuse: None Occupation: [employer] Family History: Arthritis, CAD, Hyperlipidemia, Hypertension Patient has suicidal ideation: No Patient has homicidal ideation: No Pulmonary Medical History: Reports: Hx Bronchitis Renal/ Medical History: Denies: Hx Peritoneal Dialysis Psychiatric Medical History: Reports: Hx Attention Deficit Hyperactivity Disorder Surgical Hx: Negative - Immunizations Immunizations up to date: Yes Hx Diphtheria, Pertussis, Tetanus Vaccination: Yes - 08/2014 Vertical Provider Document - CONSTITUTIONAL Agree With Documented VS: Yes Exam Limitations: No Limitations General Appearance: WD/WN, No Apparent Distress - INFECTION CONTROL TRAVEL OUTSIDE OF THE [place] IN LAST 30 DAYS: No - HEENT HEENT: Atraumatic, Normocephalic - NECK Neck: Supple - RESPIRATORY Respiratory: No Respiratory Distress - CARDIOVASCULAR Cardiovascular: Regular Rate - GI/ABDOMEN Gastrointestinal: Abdomen Non-Tender - MUSCULOSKELETAL/EXTREMETIES Musculoskeletal/Extremeties: MAEW, FROM, Non-Tender, No Edema - NEURO Level of Consciousness: Awake, Alert, Appropriate Motor/Sensory: No Motor Deficit - DERM Integumentary: Warm, Dry Course - Re-evaluation Re-evalutation: 07/27/18 19:38 Patient looks excellent. Nontoxic looking. Hands are not swollen. No peripheral edema to the lower extremities either. She is speaking in a clear voice Hattori rate is even and unlabored no shortness of breath. No signs are stable discussed edema with patient. Discussed the importance of monitoring blood pressure drinking enough fluids and staying hydrated. Also discussed the importance of follow-up with KNURLING MACHINE OPERATOR. She verbalized understanding to all instructions. - Vital Signs Vital signs: Temp Pulse Resp BP Pulse Ox 98.2 F 86 18 120/63 98 07/27/18 18:02 07/27/18 18:02 07/27/18 18:02 07/27/18 18:02 07/27/18 18:02 Discharge - Discharge Clinical Impression: Swelling of both hands Condition: Stable Disposition: HOME, SELF-CARE Additional Instructions: *You have been evaluated for bilateral hand swelling *Drink enough fluids *Follow up with your WIRE REPAIRER within one week for a recheck *Return to ED for worsening condition, changes, needs Referrals: JOE REYNA CNM [Primary Care Provider] - Follow up in 1 week
[2018-07-27 19:41] VITALS: BP 118/58
== END 2018-07-27 19:39 | disposition home or self-care (01) ==
LOC: ER 17:56
DX: O99.89 Other specified diseases and conditions complicating pregnancy, childbirth and the puerperium (principal); M79.89 Other specified soft tissue disorders; Z3A.14 14 weeks gestation of pregnancy
CPT/HCPCS: 99283

== ENCOUNTER 2018-08-05 16:20 | Emergency (ER) | payer MEDICAID, OTHER ==
[2018-08-05 16:29] VITALS: BP 135/81
--- NOTE | 2018-08-05 16:46 | ER Document Report ---
ED Medical Screen (RME) - General Chief Complaint: Dizziness Stated Complaint: LIGHT HEADEDNESS Time Seen by Provider: 08/05/18 16:36 Primary Care Provider: JOE REYNA CNM [Primary Care Provider] - Follow up as needed Mode of Arrival: Ambulatory Information source: Patient Notes: 23-year-old female presented to ED for complaint of lightheadedness paleness feeling off. She is 16 weeks with twins. She is 2 para 0. She states that she just had a visit at her BIOCHEMISTRY TEACHER 2 weeks ago and had a ultrasound everything was okay. Patient is alert oriented respirations regular and unlabored speaking in full sentences walks with a even steady gait. She is mildly pale. Her Accu-Chek was 101 signs are stable. TRAVEL OUTSIDE OF THE [place] IN LAST 30 DAYS: No - Related Data Allergies/Adverse Reactions: No Known Allergies Allergy (Verified 07/27/18 18:00) Past Medical History - Social History Chew tobacco use (# tins/day): No Drug Abuse: None Pulmonary Medical History: Reports: Hx Bronchitis Renal/ Medical History: Denies: Hx Peritoneal Dialysis Psychiatric Medical History: Reports: Hx Attention Deficit Hyperactivity Disorder - Immunizations Immunizations up to date: Yes Hx Diphtheria, Pertussis, Tetanus Vaccination: Yes - 08/2014 Physical Exam - Vital signs Vitals: Temp Pulse Resp BP Pulse Ox 98.4 F 82 16 135/81 H 99 08/05/18 16:28 08/05/18 16:28 08/05/18 16:28 08/05/18 16:28 08/05/18 16:28 Course - Vital Signs Vital signs: Temp Pulse Resp BP Pulse Ox 98.4 F 82 16 135/81 H 99 08/05/18 16:28 08/05/18 16:28 08/05/18 16:28 08/05/18 16:28 08/05/18 16:28 Doctor's Discharge - Discharge Referrals: JOE REYNA CNM [Primary Care Provider] - Follow up as needed
[2018-08-05 17:15] LABS: ABSOLUTE EOSINOPHILS # (AUTO) 0.1 10^3/uL (0.0-0.6); ABSOLUTE LYMPHOCYTES (AUTO) 1.7 10^3/uL (0.5-4.7); ABSOLUTE MONOCYTES (AUTO) 0.8 10^3/uL (0.1-1.4); BASOPHILS % (AUTO) 0.3 % (0-2); HEMATOCRIT 37.4 % (36.0-47.0); HEMOGLOBIN 12.6 g/dL (12.0-15.5); LYMPHOCYTES % (AUTO) 17.8 % (13-45); MEAN CORPUSCULAR HEMOGLOBIN 27.9 pg (27.0-33.4); MEAN CORPUSCULAR HGB CONC 33.8 g/dL (32.0-36.0); MEAN CORPUSCULAR VOLUME 83 fl (80-97); MONOCYTES % (AUTO) 8.2 % (3-13); PLATELET COUNT 166 10^3/uL (150-450); RED BLOOD COUNT 4.53 10^6/uL (3.72-5.28); RED CELL DISTRIBUTION WIDTH 15.9 % (11.5-14.0); SEGMENTED NEUTROPHILS % (AUTO) 72.7 % (42-78); TOTAL CELLS COUNTED % (AUTO) 100 %; WHITE BLOOD COUNT 9.6 10^3/uL (4.0-10.5)
[2018-08-05 17:21] LABS: APPEARANCE,URINE CLEAR; BILIRUBIN,URINE NEGATIVE (NEGATIVE); COLOR,URINE STRAW; GLUCOSE, URINE NEGATIVE (NEGATIVE); KETONES,URINE NEGATIVE (NEGATIVE); LEUKOCYTE ESTERASE,URINE TRACE (NEGATIVE); NITRITE,URINE NEGATIVE (NEGATIVE); PROTEIN,URINE NEGATIVE (NEGATIVE); URINE SPECIFIC GRAVITY 1.005; UROBILINOGEN,URINE NEGATIVE mg/dL (<2.0)
[2018-08-05 17:32] LABS: ALANINE AMINOTRANSFERASE 13 U/L (9-52); ALKALINE PHOSPHATASE 58 U/L (38-126); ANION GAP 12 (5-19); ASPARTATE AMINO TRANSFERASE 13 U/L (14-36); BILIRUBIN,DIRECT 0.3 mg/dL (0.0-0.4); BILIRUBIN,TOTAL 0.3 mg/dL (0.2-1.3); BLOOD UREA NITROGEN 3 mg/dL (7-20); CALCIUM 9.8 mg/dL (8.4-10.2); CARBON DIOXIDE 20 mmol/L (22-30); CHLORIDE 104 mmol/L (98-107); GLUCOSE 76 mg/dL (75-110); SODIUM 135.9 mmol/L (137-145); TOTAL PROTEIN 7.4 g/dL (6.3-8.2)
--- NOTE | 2018-08-05 19:48 | ER Document Report ---
ED General - General Chief Complaint: Dizziness Stated Complaint: LIGHT HEADEDNESS Time Seen by Provider: 08/05/18 16:36 Primary Care Provider: JOE REYNA CNM [NO LOCAL MD] - Follow up as needed Mode of Arrival: Ambulatory Notes: Patient is a 23-year-old female currently 16 weeks gestation with a twin who presents with at least 1-2 weeks of intermittent lightheadedness worse today. States that she was at work, some of her work, stated that she look a little pale and she felt quite lightheaded. This prompted her to come to the emergency department for assessment. States that her lightheadedness seems to be worse when she is standing or moving. Described as a feeling of lightheadedness like she might pass out. She states that she is been trying to eat sugar and drink plenty of fluids without any significant improvement. She has not seen her MELTER ASSISTANT regarding today's concerns. She has not actually syncopized. She denies any abdominal pain, vaginal bleeding, vaginal discharge or dysuria. No chest pain, shortness of breath, pleuritic pain, unilateral leg swelling. TRAVEL OUTSIDE OF THE [place] IN LAST 30 DAYS: No - Related Data Allergies/Adverse Reactions: No Known Allergies Allergy (Verified 07/27/18 18:00) Past Medical History - General Information source: Patient - Social History Smoking Status: Never Smoker Chew tobacco use (# tins/day): No Drug Abuse: None Lives with: Spouse/Significant other Family History: Arthritis, CAD, Hyperlipidemia, Hypertension Patient has suicidal ideation: No Patient has homicidal ideation: No Pulmonary Medical History: Reports: Hx Bronchitis Renal/ Medical History: Denies: Hx Peritoneal Dialysis Psychiatric Medical History: Reports: Hx Attention Deficit Hyperactivity Disorder - Immunizations Immunizations up to date: Yes Hx Diphtheria, Pertussis, Tetanus Vaccination: Yes - 08/2014 Review of Systems - Review of Systems Notes: Constitutional: Negative for fever. HENT: Negative for sore throat. Eyes: Negative for visual changes. Cardiovascular: Negative for chest pain. Positive for lightheadedness Respiratory: Negative for shortness of breath. Gastrointestinal: Negative for abdominal pain, vomiting or diarrhea. Genitourinary: Negative for dysuria. Musculoskeletal: Negative for back pain. Skin: Negative for rash. Neurological: Negative for headaches, weakness or numbness. 10 point ROS negative except as marked above and in HPI. Physical Exam - Vital signs Vitals: Temp Pulse Resp BP Pulse Ox 98.4 F 82 16 135/81 H 99 08/05/18 16:28 08/05/18 16:28 08/05/18 16:28 08/05/18 16:28 08/05/18 16:28 Interpretation: Normal Notes: PHYSICAL EXAMINATION: GENERAL: Well-appearing, well-nourished and in no acute distress. HEAD: Atraumatic, normocephalic. EYES: Pupils equal round and reactive to light, extraocular movements intact, sclera anicteric, conjunctiva are normal. ENT: nares patent, oropharynx clear without exudates. Moist mucous membranes. NECK: Normal range of motion, supple without lymphadenopathy LUNGS: Breath sounds clear to auscultation bilaterally and equal. No wheezes rales or rhonchi. HEART: Regular rate and rhythm without murmurs ABDOMEN: Soft, nontender, normoactive bowel sounds. No guarding, no rebound. No masses appreciated. EXTREMITIES: Normal range of motion, no pitting or edema. No cyanosis. NEUROLOGICAL: No focal neurological deficits. Moves all extremities spontaneously and on command. PSYCH: Normal mood, normal affect. SKIN: Warm, Dry, normal turgor, no rashes or lesions noted. Course - Re-evaluation Re-evalutation: 08/05/18 19:47 Patient presents with several weeks of intermittent lightheadedness worse today in the setting of a twin second trimester at 16 weeks. Patient is well in appearance, but has not had syncope, palpitations, chest pain or shortness of breath. No clinical history to support a diagnosis of a acute pulmonary embolus. She is not tachycardic, not hypoxic, not tachypneic and denies any symptoms to suggest this diagnosis. Labs are broadly unremarkable. EKG without any acute findings. She has no lower externally edema. Physical exam without any evidence of overt dehydration. Gravid uterus, soft abdomen. Exact etiology the patient's symptoms is unclear but does not appear to be from a life threatening etiology today. Likely related to her . I have continued to encourage her to follow-up with her OB regarding these concerns. At this time will discharge with return precautions and follow-up recommendations. Verbal discharge instructions given a the bedside and opportunity for questions given. Medication warnings reviewed. Patient is in agreement with this plan and has verbalized understanding of return precautions and the need for primary care follow-up in the next 24-72 hours. - Vital Signs Vital signs: Temp Pulse Resp BP Pulse Ox 98.4 F 72 16 135/81 H 99 08/05/18 16:28 08/05/18 20:54 08/05/18 20:54 08/05/18 16:28 08/05/18 16:28 - Laboratory Result Diagrams: 08/05/18 16:50 08/05/18 16:50 Laboratory results interpreted by me: 08/05/18 08/05/18 08/05/18 16:50 16:50 16:50 RDW 15.9 H Sodium 135.9 L Carbon Dioxide 20 L BUN 3 L AST 13 L Ur Leukocyte Esterase TRACE H - EKG Interpretation by Me Additional EKG results interpreted by me: 08/05/18 23:30 Sinus rhythm, rate 73. No ST elevations or depressions. QTC is 424. Discharge - Discharge Clinical Impression: Lightheadedness Twin in second trimester Qualifiers: Multiple gestation type: unspecified Qualified Code(s): O30.002 - Twin , unspecified number of placenta and unspecified number of amniotic sac s, second trimester Condition: Good Disposition: HOME, SELF-CARE Additional Instructions: You were seen today for lightheadedness/dizziness. The exact cause of your symptoms is unclear but your workup here is reassuring without any concerning findings. Please follow closely with your MELTER ASSISTANT in the next 1-3 days. Return if you pass out, have additional episodes of lightheadedness, develop weakness/numbness, have persistent vomiting, chest pain, shortness of breath or any other symptoms that are concerning to you. For reflux you may take famotidine 20 mg twice daily which can be purchased directly over the counter. Referrals: JOE REYNA CNM [NO LOCAL MD] - Follow up as needed
--- NOTE | 2018-08-06 21:02 | EKG REPORT ---
SEVERITY:- NORMAL ECG - SINUS RHYTHM : Confirmed by: Nia Moon MD 06-Aug-2018 21:01:57
== END 2018-08-05 20:54 | disposition home or self-care (01) ==
LOC: ER 16:20
DX: O26.892 Other specified pregnancy related conditions, second trimester (principal); R42 Dizziness and giddiness; O30.002 Twin pregnancy, unspecified number of placenta and unspecified number of amniotic sacs, second trimester; Z3A.16 16 weeks gestation of pregnancy
CPT/HCPCS: 36415; 80053; 81001; 82962; 85025; 93005; 93010; 99284

== ENCOUNTER 2018-11-11 13:19 | Outpatient (CLI) | payer MEDICAID | END 2018-11-11 13:50 | disposition home or self-care (01) | LOC: LC 13:19 | PROVIDERS: ATTEND Obstetrics & Gynecology | PROC: 4A1HXCZ Monitoring of Products of Conception, Cardiac Rate, External Approach (ICD-10-PCS; principal; 2018-11-11) | DX: O30.003 Twin pregnancy, unspecified number of placenta and unspecified number of amniotic sacs, third trimester (principal); Z3A.29 29 weeks gestation of pregnancy ==

== ENCOUNTER 2018-11-23 12:58 | Outpatient (CLI) | payer MEDICAID ==
[2018-11-23] MEDS ORDERED: HYDROXYZINE PAMOATE 50 MG CAPSULE PO ONE (13:40)
[2018-11-23 13:51] LABS: APPEARANCE,URINE SLIGHTLY-CLOUDY; BILIRUBIN,URINE NEGATIVE (NEGATIVE); COLOR,URINE YELLOW; GLUCOSE, URINE NEGATIVE (NEGATIVE); KETONES,URINE NEGATIVE (NEGATIVE); LEUKOCYTE ESTERASE,URINE LARGE (NEGATIVE); NITRITE,URINE NEGATIVE (NEGATIVE); PROTEIN,URINE NEGATIVE (NEGATIVE); URINE SPECIFIC GRAVITY 1.014; UROBILINOGEN,URINE NEGATIVE mg/dL (<2.0)
[2018-11-23 14:09] LABS: URINE AMPHETAMINES SCREEN NEGATIVE; URINE BARBITURATES SCREEN NEGATIVE; URINE BENZODIAZEPINES SCREEN NEGATIVE; URINE COCAINE SCREEN NEGATIVE; URINE MARIJUANA (THC) SCREEN NEGATIVE; URINE METHADONE SCREEN NEGATIVE; URINE PHENCYCLIDINE SCREEN NEGATIVE
--- NOTE | 2018-11-23 14:51 | RADIOLOGY REPORT (SQ) ---
EXAM DESCRIPTION: U/S OB LIMITED COMPLETED DATE/TIME: 11/23/2018 2:30 pm REASON FOR STUDY: cervical length COMPARISON: 07/05/2018 TECHNIQUE: Limited transabdominal grayscale ultrasound for evaluation of specific requested obstetri bartolome parameters. LIMITATIONS: None. FINDINGS: CERVICAL LENGTH: 3.2 cm Closed. LVP: 4.1 and 5.8 cm. FHR: Fetus A: 165 BPM. Fetus B: 149 BPM. PRESENTATION: Twin A: Vertex. Twin B: Tranverse. PLACENTA: Anterior ANATOMY: Not assessed OTHER: Estimated gestational age of 31 weeks and 1 day IMPRESSION: CERVICAL LENGTH OF 3.2 CM. LIMITED OBSTETRICAL ULTRASOUND WITH ADDITIONAL MEASURED PARAMETERS DELINEATED ABOVE. Trimester of : Third trimester - 28 weeks to delivery. TECHNICAL DOCUMENTATION: JOB ID: [id number] [employer]- All Rights Reserved Reading location - IP/workstation name: [email or web address]
--- NOTE | 2018-11-24 09:57 | RADIOLOGY REPORT (SQ) ---
EXAM DESCRIPTION: U/S [id number] + EACH ADDIT GEST COMPLETE DATE/TIME: 11/23/2018 2:30 pm REASON FOR STUDY: CX LENGTH FINDINGS: Please see combined report for performance of procedure and radiologic supervision and int erpretation. IMPRESSION: Please see combined report for performance of procedure and radiologic supervision and i nterpretation. Reading location - IP/workstation name: [email or web address]
== END 2018-11-23 14:40 | disposition home or self-care (01) ==
LOC: LC 12:58
PROVIDERS: ATTEND Obstetrics & Gynecology
PROC: 4A1HXCZ Monitoring of Products of Conception, Cardiac Rate, External Approach (ICD-10-PCS; principal; 2018-11-23)
DX: O47.03 False labor before 37 completed weeks of gestation, third trimester (principal); Z3A.31 31 weeks gestation of pregnancy
CPT/HCPCS: 76810; 76815; 80307; 81001; 87086

== ENCOUNTER 2018-11-29 06:13 | Outpatient (CLI) | payer MEDICAID ==
[2018-11-29] MEDS ORDERED: HYDROXYZINE PAMOATE 50 MG CAPSULE PO ONE (06:59)
[2018-11-29 07:06] LABS: APPEARANCE,URINE SLIGHTLY-CLOUDY; BILIRUBIN,URINE NEGATIVE (NEGATIVE); COLOR,URINE STRAW; GLUCOSE, URINE NEGATIVE (NEGATIVE); KETONES,URINE NEGATIVE (NEGATIVE); LEUKOCYTE ESTERASE,URINE LARGE (NEGATIVE); NITRITE,URINE NEGATIVE (NEGATIVE); PROTEIN,URINE NEGATIVE (NEGATIVE); URINE SPECIFIC GRAVITY 1.006; UROBILINOGEN,URINE NEGATIVE mg/dL (<2.0)
[2018-11-29] MEDS ORDERED: MAG HYDROX/AL HYDROX/SIMETH SUSP 30 ML UDCUP ONE (07:20)
[2018-11-29 07:28] LABS: URINE AMPHETAMINES SCREEN NEGATIVE; URINE BARBITURATES SCREEN NEGATIVE; URINE BENZODIAZEPINES SCREEN NEGATIVE; URINE COCAINE SCREEN NEGATIVE; URINE MARIJUANA (THC) SCREEN NEGATIVE; URINE METHADONE SCREEN NEGATIVE; URINE PHENCYCLIDINE SCREEN NEGATIVE
[2018-11-29] MEDS ORDERED: PROMETHAZINE HCL INJ 25 MG/1 ML VIAL ONE (08:04)
[2018-11-29 08:22] LABS: UR PRO/CREAT RATIO RESULT 0.6 mg/mg (0.0-0.2); URINE CREATININE 29.5 mg/dL (16-327); URINE PROTEIN 16.9 mg/dL (<12)
[2018-11-29 08:34] LABS: ABSOLUTE BASOPHILS # (AUTO) 0.1 10^3/uL (0.0-0.2); ABSOLUTE EOSINOPHILS # (AUTO) 0.1 10^3/uL (0.0-0.6); ABSOLUTE LYMPHOCYTES (AUTO) 2.3 10^3/uL (0.5-4.7); ABSOLUTE MONOCYTES (AUTO) 0.9 10^3/uL (0.1-1.4); ABSOLUTE NEUT (AUTO) 9.2 10^3/uL (1.7-8.2); BASOPHILS % (AUTO) 0.4 % (0-2); HEMATOCRIT 35.3 % (36.0-47.0); HEMOGLOBIN 11.5 g/dL (12.0-15.5); LYMPHOCYTES % (AUTO) 18.2 % (13-45); MEAN CORPUSCULAR HEMOGLOBIN 24.8 pg (27.0-33.4); MEAN CORPUSCULAR HGB CONC 32.5 g/dL (32.0-36.0); MEAN CORPUSCULAR VOLUME 76 fl (80-97); PLATELET COUNT 104 10^3/uL (150-450); RED BLOOD COUNT 4.62 10^6/uL (3.72-5.28); RED CELL DISTRIBUTION WIDTH 14.7 % (11.5-14.0); SEGMENTED NEUTROPHILS % (AUTO) 73.4 % (42-78); TOTAL CELLS COUNTED % (AUTO) 100 %; WHITE BLOOD COUNT 12.6 10^3/uL (4.0-10.5)
[2018-11-29] MEDS ORDERED: PROMETHAZINE HCL INJ 25 MG/1 ML VIAL IV ONE (08:45)
[2018-11-29 08:50] LABS: ALBUMIN 3.3 g/dL (3.5-5.0); ALKALINE PHOSPHATASE 177 U/L (38-126); ANION GAP 9 (5-19); ASPARTATE AMINO TRANSFERASE 54 U/L (14-36); BILIRUBIN,DIRECT 0.1 mg/dL (0.0-0.4); BILIRUBIN,TOTAL 0.3 mg/dL (0.2-1.3); BLOOD UREA NITROGEN 12 mg/dL (7-20); CALCIUM 9.8 mg/dL (8.4-10.2); CARBON DIOXIDE 18 mmol/L (22-30); CHLORIDE 109 mmol/L (98-107); GLUCOSE 72 mg/dL (75-110); POTASSIUM 4.6 mmol/L (3.6-5.0); TOTAL PROTEIN 6.1 g/dL (6.3-8.2); URIC ACID 7.3 mg/dL (2.5-6.2)
--- NOTE | 2018-11-29 09:33 | RADIOLOGY REPORT (SQ) ---
EXAM DESCRIPTION: U/S OB LIMITED COMPLETED DATE/TIME: 11/29/2018 9:16 am REASON FOR STUDY: R/O PTL COMPARISON: None. TECHNIQUE: Limited transabdominal grayscale ultrasound for evaluation of specific requested obstetri bartolome parameters. LIMITATIONS: None. FINDINGS: CERVICAL LENGTH: 3.1 cm. Closed. LVP: Fetus A: 4.6 cm. Fetus B: 5.0 cm FHR: Fetus A: 157 BPM. Fetux B: 137 BMP. PRESENTATION: Fetus A: Vertex. Fetus B: Vertex. PLACENTA: Not assessed ANATOMY: Not assessed OTHER: No other significant findings. IMPRESSION: Limited ultrasound demonstrates living twin intrauterine pregnancies with measured barber eters as above. Cervix is closed with cervical length of 3.1 cm. Trimester of : Third trimester - 28 weeks to delivery. TECHNICAL DOCUMENTATION: JOB ID: [id number] [employer]- All Rights Reserved Reading location - IP/workstation name: [email or web address]
[2018-11-29] MEDS ORDERED: ONDANSETRON HCL INJ/PF 4 MG/2 ML SDV ONE (09:35)
[2018-11-29] MEDS ORDERED: MAGNESIUM SULFATE 20 GM/500 ML RTUINJ IV ONE (09:41)
[2018-11-29] MEDS ORDERED: MAGNESIUM SULFATE 4 GM/100 ML RTUPB IV ONE (09:41)
[2018-11-29] MEDS ORDERED: BETAMET ACET/BETAMET NA INJ 6 MG/1 ML ONE (09:46)
[2018-11-29 10:10] LABS: ABSOLUTE BASOPHILS # (AUTO) 0.1 10^3/uL (0.0-0.2); ABSOLUTE EOSINOPHILS # (AUTO) 0.1 10^3/uL (0.0-0.6); ABSOLUTE LYMPHOCYTES (AUTO) 1.7 10^3/uL (0.5-4.7); ABSOLUTE MONOCYTES (AUTO) 0.8 10^3/uL (0.1-1.4); ABSOLUTE NEUT (AUTO) 11.9 10^3/uL (1.7-8.2); BASOPHILS % (AUTO) 0.4 % (0-2); EOSINOPHILS % (AUTO) 0.5 % (0-6); HEMATOCRIT 34.8 % (36.0-47.0); HEMOGLOBIN 11.3 g/dL (12.0-15.5); MEAN CORPUSCULAR HEMOGLOBIN 24.9 pg (27.0-33.4); MEAN CORPUSCULAR HGB CONC 32.4 g/dL (32.0-36.0); MEAN CORPUSCULAR VOLUME 77 fl (80-97); MONOCYTES % (AUTO) 5.3 % (3-13); PLATELET COUNT 105 10^3/uL (150-450); RED BLOOD COUNT 4.54 10^6/uL (3.72-5.28); RED CELL DISTRIBUTION WIDTH 14.8 % (11.5-14.0); SEGMENTED NEUTROPHILS % (AUTO) 81.8 % (42-78); TOTAL CELLS COUNTED % (AUTO) 100 %; WHITE BLOOD COUNT 14.5 10^3/uL (4.0-10.5)
[2018-11-29 10:25] LABS: ALBUMIN 3.4 g/dL (3.5-5.0); ALKALINE PHOSPHATASE 181 U/L (38-126); ASPARTATE AMINO TRANSFERASE 90 U/L (14-36); BILIRUBIN,DIRECT 0.1 mg/dL (0.0-0.4); BILIRUBIN,TOTAL 0.3 mg/dL (0.2-1.3)
[2018-11-29] MEDS ORDERED: NALBUPHINE HCL INJ 10 MG/1 ML AMPULE ONE (10:29)
[2018-11-29] MEDS ORDERED: NALBUPHINE HCL INJ 10 MG/1 ML AMPULE INJ ONE ×2 (10:30→14:15)
--- NOTE | 2018-11-29 11:26 | PDOC TRANSFER SUMMARY ---
General Admission Date/PCP: PAVEL RAYGOZA MD Admission Date: 11/29/18 Transfer Date: 11/29/18 Accepting Facility: [facility] Accepting Physician: Pending Resuscitation Status: Full Code - Transfer Diagnosis (1) Monochorionic/diamniotic twin preg w/twin-twin transfn synd, antepart Is this a current diagnosis for this admission?: Yes (2) Preeclampsia Is this a current diagnosis for this admission?: Yes - Transfer Medications Home Medications: Vits96/Iron Fum/Folic [ Tablet] 1 each PO DAILY 11/11/18 Calcium Carbonate [Tums] 200 mg PO DAILY 11/23/18 Transfer Medications: This will include the magnesium sulfate at 2 g an hour IV - Allergies Allergies/Adverse Reactions: latex Allergy (Verified 11/23/18 13:32) adhesive tape Adverse Reaction (Verified 11/23/18 13:32) Hospital Course Hospital Course: Patient presented this morning with abdominal pain. She also was noted to have high blood pressures and low platelets slightly elevated liver enzymes. Her protein creatinine ratio is also elevated. After receiving some Nubain she feels much better and her blood pressures have improved somewhat. Physical Exam Vital Signs: Intake & Output 11/28/18 11/29/18 11/30/18 06:59 06:59 06:59 Weight 89.811 kg General appearance: PRESENT: no acute distress, well-developed, well-nourished Head exam: PRESENT: atraumatic, normocephalic Neck exam: ABSENT: carotid bruit, JVD, lymphadenopathy, thyromegaly Respiratory exam: PRESENT: clear to auscultation hector. ABSENT: rales, rhonchi, wheezes Cardiovascular exam: PRESENT: RRR. ABSENT: diastolic murmur, rubs, systolic murmur Pulses: PRESENT: normal dorsalis pedis pul Vascular exam: PRESENT: normal capillary refill GI/Abdominal exam: PRESENT: other - Gravid she was tender earlier but now no longer has pain at her abdomen. Gentrourinary exam: PRESENT: other - Her cervix is closed Neurological exam: PRESENT: alert, awake, oriented to person, oriented to place, oriented to time, oriented to situation, CN II-XII grossly intact. ABSENT: motor sensory deficit Results Laboratory Results: 11/29/18 09:52 11/29/18 08:13 11/29/18 11/29/1811/29/19 06:30 08:13 08:13 WBC 12.6 H RBC 4.62 Hgb 11.5 L Hct 35.3 L MCV 76 L MCH 24.8 L MCHC 32.5 RDW 14.7 H Plt Count 104 L Seg Neutrophils % 73.4 Lymphocytes % 18.2 Monocytes % 7.0 Eosinophils % 1.0 Basophils % 0.4 Absolute Neutrophils 9.2 H Absolute Lymphocytes 2.3 Absolute Monocytes 0.9 Absolute Eosinophils 0.1 Absolute Basophils 0.1 Sodium 136.3 L Potassium 4.6 Chloride 109 H Carbon Dioxide 18 L Anion Gap 9 BUN 12 Creatinine 0.80 Est GFR ( Amer) > 60 Est GFR (Non-Af Amer) > 60 Glucose 72 L Uric Acid 7.3 H Calcium 9.8 Total Bilirubin 0.3 AST 54 H Alkaline Phosphatase 177 H Total Protein 6.1 L Albumin 3.3 L Urine Color STRAW Urine Appearance SLIGHTLY-CLOUDY Urine pH 7.0 Ur Specific [place] 1.006 Urine Protein NEGATIVE Urine Glucose (UA) NEGATIVE Urine Ketones NEGATIVE Urine Blood NEGATIVE Urine Nitrite NEGATIVE Ur Leukocyte Esterase LARGE H Urine WBC (Auto) 28 Urine RBC (Auto) 1 11/29/18 11/29/18 09:52 09:52 WBC 14.5 H RBC 4.54 Hgb 11.3 L Hct 34.8 L MCV 77 L MCH 24.9 L MCHC 32.4 RDW 14.8 H Plt Count 105 L Seg Neutrophils % 81.8 H Lymphocytes % 12.0 L Monocytes % 5.3 Eosinophils % 0.5 Basophils % 0.4 Absolute Neutrophils 11.9 H Absolute Lymphocytes 1.7 Absolute Monocytes 0.8 Absolute Eosinophils 0.1 Absolute Basophils 0.1 Sodium Potassium Chloride Carbon Dioxide Anion Gap BUN Creatinine Est GFR ( Amer) Est GFR (Non-Af Amer) Glucose Uric Acid Calcium Total Bilirubin 0.3 AST 90 H Alkaline Phosphatase 181 H Total Protein 6.0 L Albumin 3.4 L Urine Color Urine Appearance Urine pH Ur Specific [place] Urine Protein Urine Glucose (UA) Urine Ketones Urine Blood Urine Nitrite Ur Leukocyte Esterase Urine WBC (Auto) Urine RBC (Auto) Impressions: Obstetrics Ultrasound 11/29/18 00:00 IMPRESSION: Limited ultrasound demonstrates living twin intrauterine pregnancies with measured parameters as above. Cervix is closed with cervical length of 3.1 cm. Trimester of : Third trimester - 28 weeks to delivery. Concern for preeclampsia possibly help syndrome. Plan Discharge Plan: She has been given magnesium sulfate in anticipation of transfer. She may need delivery and therefore was given a dose of steroids. We will transfer for evaluation and possible delivery. She already had a planned delivery at [facility] for the twin-twin transfusion syndrome.
== END 2018-11-29 13:09 | disposition short-term general hospital (02) ==
LOC: LC 06:13
PROVIDERS: ATTEND Obstetrics & Gynecology
DX: O14.93 Unspecified pre-eclampsia, third trimester (principal); O43.023 Fetus-to-fetus placental transfusion syndrome, third trimester; O30.003 Twin pregnancy, unspecified number of placenta and unspecified number of amniotic sacs, third trimester; O24.419 Gestational diabetes mellitus in pregnancy, unspecified control; Z3A.31 31 weeks gestation of pregnancy; Z91.040 Latex allergy status
CPT/HCPCS: 59899; 36415; 82962; 83615; 84156; 84550; 82570; 85025; 87070; 80053; 81001; 80307; 76815; J3475 ×2; J3490; J2300; J0702; J2550; J2405

== ENCOUNTER 2020-03-11 10:54 | Emergency (ER) | payer MEDICAID ==
--- NOTE | 2020-03-11 11:24 | ER Document Report ---
ED Flu Like - General Chief Complaint: Flu Symptoms Stated Complaint: SHORT OF BREATH,FEVER,COUGH Time Seen by Provider: 03/11/20 11:22 Primary Care Provider: NOE NIELSON MD [HONORARY] - Follow up as needed Mode of Arrival: Ambulatory Information source: Patient Notes: Patient is a 20 for a female comes emergency room with a 3 to 4-day onset of flulike symptoms. Patient states she has had a fever up to 100.5. Nonproductive cough. She was exposed to a pot Covid positive patient 1 week ago. This was direct contact. She states her symptoms had all of a sudden. She only has a history of osteoarthritis and asthma. She does not smoke. He currently on her menses. She complains also of a sore throat. Patient did have her influenza shot this year about a month and a half ago. TRAVEL OUTSIDE OF THE [place] IN LAST 30 DAYS: No - HPI Onset: Other - 4 days Timing/Duration: Constant Quality of pain: Achy Severity: Moderate Pain Level: 3 CO exposure: No Shortness of breath: Moderate Associated symptoms: Shortness of breath, Sore throat Similar symptoms previously: No Recently seen / treated by doctor: No - Related Data Allergies/Adverse Reactions: latex Allergy (Verified 03/11/20 11:13) adhesive tape Adverse Reaction (Verified 03/11/20 11:13) Past Medical History - General Information source: Patient - Social History Smoking Status: Never Smoker Cigarette use (# per day): No Chew tobacco use (# tins/day): No Smoking Education Provided: No Frequency of alcohol use: None Drug Abuse: None Lives with: Family Family History: Reviewed & Not Pertinent, Arthritis, CAD, Hyperlipidemia, Hypertension Patient has homicidal ideation: No Pulmonary Medical History: Reports: Hx Bronchitis Renal/ Medical History: Denies: Hx Peritoneal Dialysis Psychiatric Medical History: Reports: Hx Attention Deficit Hyperactivity Disorder - Immunizations Immunizations up to date: Yes Hx Diphtheria, Pertussis, Tetanus Vaccination: Yes - 08/2014 Review of Systems - Review of Systems Constitutional: See HPI, Fever, Weakness EENT: Nose congestion, Sinus pressure, Throat pain. denies: Throat swelling, Mouth pain, Dental problem Cardiovascular: No symptoms reported Respiratory: See HPI, Hurts to breathe, Short of breath Gastrointestinal: No symptoms reported Genitourinary: No symptoms reported Female Genitourinary: No symptoms reported Musculoskeletal: Muscle pain Skin: No symptoms reported Hematologic/Lymphatic: No symptoms reported Neurological/Psychological: No symptoms reported -: Yes All other systems reviewed and negative Physical Exam - Vital signs Vitals: Temp Pulse Resp BP Pulse Ox 98.4 F 114 H 18 124/77 96 03/11/20 10:59 03/11/20 10:59 03/11/20 10:59 03/11/20 10:59 03/11/20 10:59 Interpretation: Tachycardic - Notes Notes: PHYSICAL EXAMINATION: GENERAL: Well-appearing, well-nourished and in no acute distress. HEAD: Atraumatic, normocephalic. EYES: Pupils equal round and reactive to light, extraocular movements intact, conjunctiva are normal. ENT: Examination head and upper airway show nasal mucosa be mildly erythematous edematous with some rhinorrhea noted clear in color. No frontal or maxillary sinus tenderness to palpation. Posterior pharynx shows mild erythema tonsils appear normal in size no exudates noted. Airway is patent. NECK: Normal range of motion, supple without lymphadenopathy LUNGS: Auscultation patient's lungs show bilateral breath sounds decreased throughout faint end expiratory wheeze noted on the right side. HEART: Tachycardic rate and rhythm without murmurs Musculoskeletal: Normal range of motion, no pitting or edema. No cyanosis. NEUROLOGICAL: Normal speech, normal gait. Normal sensory, motor exams PSYCH: Normal mood, normal affect. SKIN: Warm, Dry, normal turgor, no rashes or lesions noted. Course - Re-evaluation Re-evalutation: 03/11/20 20:23 Patient's chest x-ray and flu and strep came back negative. She has had contact with a positive Covid patient approximately 1 week to 10 days ago. So this could most likely be positive resolved as well. Patient's been informed to go home and self quarantine until she gets the results back. - Vital Signs Vital signs: Temp Pulse Resp BP Pulse Ox 98.1 F 97 20 112/63 98 03/11/20 13:54 03/11/20 13:54 03/11/20 13:54 03/11/20 13:54 03/11/20 13:54 Discharge - Discharge Clinical Impression: Person under investigation for COVID-19, Viral syndrome Condition: Stable Disposition: HOME, SELF-CARE Instructions: COVID-19 Guidance for Persons Under Investigation, Acetaminophen, Fever ([facility]), Viral Syndrome ([facility]) Additional Instructions: Home and rest. As we discussed since you had contact with a Covid positive person about a week ago you might be right on that threshold to be unable to determine whether you have it or not. You need to self quarantine for minimum of 2 weeks. Since you do not work outside the home I still recommend that you wear a mask around everyone else in the house. Tylenol alternate with Motrin every 4-6 hours to keep the fever down and aches and pains away. Should you get short of breath or have increasing fever return to ER for reevaluation. Forms: Smoking Cessation Education, Elevated Blood Pressure Referrals: NOE NIELSON MD [HONORARY] - Follow up as needed
--- NOTE | 2020-03-11 11:58 | RADIOLOGY REPORT (SQ) ---
EXAM DESCRIPTION: CHEST SINGLE VIEW IMAGES COMPLETED DATE/TIME: 03/11/2020 10:37 am REASON FOR STUDY: cough COMPARISON: 09/29/2016 EXAM PARAMETERS: NUMBER OF VIEWS: One view. TECHNIQUE: Single frontal radiographic view of the chest acquired. RADIATION DOSE: NA LIMITATIONS: None. FINDINGS: LUNGS AND PLEURA: No opacities, masses or pneumothorax. No pleural effusion. MEDIASTINUM AND HILAR STRUCTURES: No masses. Contour normal. HEART AND VASCULAR STRUCTURES: Heart normal in size. Normal vasculature. BONES: No acute findings. HARDWARE: None in the chest. OTHER: No other significant finding. IMPRESSION: NO ACUTE RADIOGRAPHIC FINDING IN THE CHEST. TECHNICAL DOCUMENTATION: JOB ID: [id number] [employer]- All Rights Reserved Reading location - IP/workstation name: [email or web address]
[2020-03-11 12:20] LABS: A TYPE INFLUENZA AG NEGATIVE (NEGATIVE); B INFLUENZA AG NEGATIVE (NEGATIVE)
[2020-03-11 13:57] VITALS: BP 112/63
== END 2020-03-11 13:57 | disposition home or self-care (01) ==
LOC: ER 10:54
DX: U07.1 COVID-19 (principal); R06.02 Shortness of breath; R50.9 Fever, unspecified; R53.1 Weakness; R05 Cough; Z91.040 Latex allergy status
CPT/HCPCS: 99284; 87070; 87880; 87635; 87804; 71045; C9803